=== PATIENT | female | born 1955 | race Caucasian/White ===

== ENCOUNTER 2018-09-09 19:14 | Emergency (ER) | payer BC, SELFPAY ==
[2018-09-09 19:15] VITALS: BP 151/87; PULSE 85; RESP 18; TEMP 36.7; O2SAT 99
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
--- NOTE | 2018-09-09 22:18 | ED.DEP ---
ED Disposition - Plan for ED Patient: Instructions: ED Concussion Referrals: Raul Brady DO [Primary Care Provider] -
[2018-09-09 22:22] VITALS: BP 146/85; PULSE 80; RESP 15; O2SAT 99
== END 2018-09-09 22:23 | disposition home or self-care (01) ==
LOC: ED 19:48
PROVIDERS: Emergency Provider Emergency Medicine; Family Provider Student in an Organized Health Care Education/Training Program; PCP Student in an Organized Health Care Education/Training Program
DX: S06.0X0A Concussion without loss of consciousness, initial encounter (principal); W22.8XXA Striking against or struck by other objects, initial encounter; Y93.9 Activity, unspecified; Y92.9 Unspecified place or not applicable; Y99.9 Unspecified external cause status; Z79.82 Long term (current) use of aspirin; Z79.899 Other long term (current) drug therapy; Z87.891 Personal history of nicotine dependence
CPT/HCPCS: 70450; 99282

== ENCOUNTER 2019-06-11 16:06 | Observation (INO) | payer BC, SELFPAY ==
[2019-06-11] VITALS (9 sets, daily range): BP systolic 126–156; BP diastolic 71–86; PULSE 61–83; RESP 16–20; TEMP 36.7–36.9; O2SAT 97–99; BMI 20.7; BMI 20.8
--- NOTE | 2019-06-11 16:40 | CT_ITS ---
STUDY: CTA HEAD AND NECK WITH CONTRAST REASON FOR EXAM: Female, 64 years old. NUMBNESS,TINGLING TO LEFT ARM/FACE RADIATION DOSAGE (If Supplied By Facility): CTDIvol = ( 5.27 ) mGy, DLP = ( 208.95 ) mGycm TECHNIQUE: CT angiography was performed with a multi-detector CT scanner. Data acquisition was obtained from the skull base through the vertex following intravenous administration of 100 CC ISOVUE 370. MIP images were reconstructed from the axial data set. Post-processing of the angiographic images was performed, with multiplanar reformation and 3D reconstruction. Individualized dose optimization techniques were used for this CT. COMPARISON: No relevant priors. FINDINGS: Normal bilateral petrous carotid arteries. Normal right cavernous carotid artery with a normal supraclinoid bifurcation. Normal left cavernous carotid artery with a normal supraclinoid bifurcation. Normal right A1 segments of the anterior cerebral artery. Normal left A1 segments of the anterior cerebral artery. Normal intact anterior communicating artery (ACOM). Normal bilateral A2 segments of the anterior cerebral arteries. Normal right M1 and M2 segments of the middle cerebral arteries, with a normal M1 bifurcation. Normal left M1 segments of the middle cerebral artery, with a normal M1 bifurcation. Poor visualization of the M2 and distal branches of the left middle cerebral artery which may represent the left middle cerebral artery infarct. No abrupt occlusion. Normal right posterior communicating artery (PCOM). Normal left posterior communicating artery (PCOM). Normal bilateral vertebral arteries. Normal basilar artery with a normal basilar bifurcation. The visualized bilateral superior cerebellar (SCA) arteries are normal. Normal bilateral P1, P2 and visualized P3 segments of the posterior cerebral arteries. There is no demonstrated aneurysm of the ambler of [place]. There is no demonstrated abnormality of the visualized brain. AORTIC ARCH: Normal visualized aortic arch. Normal origins of the brachiocephalic, left common carotid, and left subclavian arteries. RIGHT CAROTID ARTERIES: Normal right common carotid artery (CCA). Normal right common carotid bulb. Normal origin of the right internal carotid (ICA) artery without a hemodynamically significant stenosis. Normal visualized cervical portion of the right internal carotid artery. Normal origin of the right external carotid artery (ECA). LEFT CAROTID ARTERIES: Normal left common carotid artery (CCA). Normal left common carotid bulb. Normal origin of the left internal carotid (ICA) artery without a hemodynamically significant stenosis. Normal visualized cervical portion of the left internal carotid artery. Normal origin of the left external carotid artery (ECA). VERTEBRAL ARTERIES: Hypoplastic right vertebral artery which does anastomose with the left vertebral artery to form the basilar artery. CT/CTA Head AND Neck W/ Contrast IMPRESSION: 1. Suspect left middle cerebral artery infarct with vasospasm. No abrupt occlusion. Correlation MRI would be useful. 2. No carotid stenosis. 3. Hypoplastic right vertebral artery and patent dominant left vertebral artery. Electronically Signed: Harish Mackey MD at 17:48 EST Tel , Service support ,
--- NOTE | 2019-06-11 16:40 | CT_ITS ---
We are attempting to reach an attending provider to discuss findings. An addendum with communication details will be sent when the communication is complete. STUDY: CT BRAIN WITHOUT CONTRAST REASON FOR EXAM: Female, 64 years old. NUMBNESS,TINGLING LEFT ARM/FACE RADIATION DOSAGE (If Supplied By Facility): CTDIvol = ( 44.99 ) mGy, DLP = ( 745.49 ) mGycm TECHNIQUE: Transaxial CT imaging of the brain was performed without administration of intravenous contrast material. Individualized dose optimization techniques were used for this CT. COMPARISON: 09/09/2018 FINDINGS: Normal soft tissue structures. Normal calvarium. Normal size ventricles and extra-axial spaces for the patient''s age. Normal white matter tracts of the cerebral hemispheres. Normal basal ganglia and thalami. Normal brainstem. Normal cerebellum. There is no intracranial hemorrhage. There are no findings of an acute ischemic infarction. Normal visualized paranasal sinuses. CT/Brain/Head without Contrast IMPRESSION: Normal unenhanced CT scan of the brain. Electronically Signed: Harish Mackey MD at 17:02 EST Tel , Service support ,
--- NOTE | 2019-06-11 16:40 | EKG12_ITS ---
Test Reason : Blood Pressure : / mmHG Vent. Rate : 076 BPM Atrial Rate : 076 BPM P-R Int : 172 ms QRS Dur : 090 ms QT Int : 408 ms P-R-T Axes : 080 085 064 degrees QTc Int : 459 ms Normal sinus rhythm Right atrial enlargement Nonspecific ST abnormality Abnormal ECG Confirmed by DOMINIQUE ROMO, JOSUÉ ([id number]), food editor UMER ARCEO ([id number]) on 06/15/2019 3:45:01 PM Referred By: ERICH Confirmed By:JOSUÉ FOX MD
--- NOTE | 2019-06-11 16:41 | CT_ITS ---
STUDY: CTA CHEST REASON FOR EXAM: Female, 64 years old. NUMBNESS,TINGLING TO LEFT ARM/FACE RADIATION DOSAGE (If Supplied By Facility): CTDIvol = ( 12.15 ) mGy, DLP = ( 422.84 ) mGycm TECHNIQUE: The examination was performed with the intravenous administration of IV 100mL Isovue-370. Post-processing of the angiographic images was performed, with multiplanar reformation and 3D reconstruction. Individualized dose optimization techniques were used for this CT. COMPARISON: None. FINDINGS: Normal enhancement of the main pulmonary artery and right and left pulmonary arteries. Normal enhancement of the bilateral peripheral pulmonary arteries. There is no demonstrated pulmonary embolism. Normal thoracic aorta and visualized great vessels. There is no demonstrated aortic dissection. Normal heart and pericardium. Normal mediastinum. Normal hilar regions. Normal visualized trachea and bronchi. The lungs are well expanded. Normal pulmonary parenchyma. Normal pleura. Normal chest wall structures. Normal osseous structures. Normal visualized upper abdomen. CT/CTA Chest W/WO Contrast IMPRESSION: Normal CTA chest examination, without a demonstrated pulmonary embolism or arterial dissection. Electronically Signed: Harish Mackey MD at 17:38 EST Tel , Service support ,
--- NOTE | 2019-06-11 16:44 | NURSING ---
1513 STROKE ALERT CALLED
--- NOTE | 2019-06-11 16:49 | ED.DCSUM_ITS ---
History of Present Illness Chief Complaint: Numb/Ting Informant: Patient Onset: Today - 1100 time of onset Context: Sudden Onset - while walking in a store Quality and Location: Left Face Parasthesia, Left Arm Parasthesia Onset: sudden Current Severity: Mild Maximum Severity: Mild Worsened by: nothing Relieved by: nothing Associated Symptoms: Headache - see below. Negative for: Nausea, Vomiting, Chest Pain Narrative: Patient states her left lower extremity was hurting her last night, that is not bothering her today. While she was walking in a store today, she states that her left face started feeling funny in her jaw, as well as her left upper extremity. She states it was kind of tingling and kind of like my muscles were fatigued but she had no reason for that to be the case necessarily. She states she did some lifting and exercise yesterday, but did not feel like she overexerted herself in any way. She denies any palpitations, sweats, lightheadedness, chest or back pain, or dyspnea. She has no history of heart disease that she knows of. She denies any weakness anywhere. No recent injuries or travel out of the area. She felt some chills earlier and feels tired now like she is coming down with something but denies any fevers or symptoms of an illness except for a runny nose recently. No coughing. States she has a history of connective tissue disease and has reynauds phenomenon along with that, and her reynauds was affecting her hands today, but she denies any neurologic symptoms on the right side, with the exception of the tingling on the left side of her face that progressed around to the right perioral area as well. She also states that for longer period of time today, she had a specific area on her left protestant that was sore, not like an internal headache. She denies any visual changes at all during the course of any or all of the symptoms. Her leg is not bothering her today. No history of TIA or stroke. She does not take aspirin or any anticoagulants. Time of onset was around 11 AM today, which was 5-6 hours ago. - Past Medical History (1) Connective tissue disease, undifferentiated Status: Chronic Past Medical History - Allergies and Home Meds Allergies/Adverse Reactions: Allergies codeine Allergy (Verified 06/11/19 16:10) Rash epinephrine Allergy (Verified 06/11/19 16:10) Nausea/Vom/Diarrhea promethazine HCl [From Phenergan] Allergy (Verified 06/11/19 16:10) Rash Primary Care Physician: Raul Brady DO [Primary Care Provider] - Smoking Status: Former smoker Drugs: None Review of Systems General: Reports: Chills, Malaise. Denies: Fever, Sweats Eyes: Denies: Visual changes - bilaterally, Diplopia ENT: Reports: Rhinorrhea. Denies: Bilateral ear pain, Sore throat Cardiovascular: Denies: Chest pain, Palpitations Respiratory: Denies: Dyspnea, Cough, Dyspnea on exertion Gastrointestinal: Denies: Abdominal pain, Nausea, Vomiting, Diarrhea, Melena, Hematochezia Genitourinary: Denies: Dysuria, Hematuria, Frequency Musculoskeletal: Reports: Extremity Pain - see HPI; fatigued/discomfort. Denies: Neck pain, Back pain, Swelling Skin: Denies: Rash, Wounds Neurological: Reports: Parasthesia. Denies: Headache, Weakness STROKE Vital Signs/Narrative: Vital Signs Temp Pulse Resp BP Pulse Ox 06/11/19 16:07 98.0 F 71 16 149/76 H 98 Inital Vital Signs reviewed: Yes - NIHSS Initial 1a Level of Consciousness: 0 1b LOC Questions (Score 2 if aphasic/stupor): 0 1c LOC Commands (Only score 1st attempt): 0 2 Best Gaze (If aphasic, use reflexive mvmts.): 0 3 Visual: 0 4 Facial Palsy: 0 5 Motor Arm Right (UN = amputation/fusion): 0 5 Motor Arm Left: 0 6 Motor Leg Right: 0 6 Motor Leg Left: 0 7 Limb ataxia (Only + if out of proportion): 0 8 Sensory (Aphasia/stupor=0 or 1, coma=2): 1 9 Best Language: 0 10 Dysarthria (mute, coma=2, intubated=UN): 0 11 Extinction and Inattention (only scored if +): 0 Total Score: 1 General: Well nourished, Well developed, - - NAD Head: Normocephalic, Atraumatic Eyes: Perrl, EOMI ENT: Moist mucous membranes, No rhinorrhea, TM's clear, - - Mildly tender at one particular spot on her left protestant, but there is no palpable cord, erythema, lesion, or other objective abnormality. It is technically a little above her protestant and where the temporal artery would be expected to lie.. Negative for: Sinus tenderness Neck: Supple, Nontender, No lymphadenopathy Cardiovascular: Regular rate, Regular rhythm, No murmurs Respiratory: No distress, CTA bilaterally, Chest nontender Abdomen: Soft, Nontender, Nondistended, Normal bowel sounds Back: Nontender, Normal Inspection Extremities: Nontender, No edema. Negative for: Calf Tenderness Skin: Normal color, No rash, No Trauma Neurological: Alert, Oriented x3, Cranial nerves II-XII grossly intact, Normal Strength, Normal DTR, Normal Gait Psychological: Normal affect, Normal Mood Diagnostic/Tx/Re-eval Impressions Brain CT 06/11/19 16:40 IMPRESSION: Normal unenhanced CT scan of the brain. Electronically Signed: Harish Mackey MD at 17:02 EST Tel , Service support , ADDENDUM: 06/11/19 1710 IMPRESSION: Normal unenhanced CT scan of the brain. N.B. : The above information has been verbally conveyed by Harish Mackey MD to Thiago Dong MD, on 06/11/2019 17:03:48 (ET). Electronically Signed: Harish Mackey MD at 17:02 EST Tel , Service support , Head/Neck CTA 06/11/19 16:40 IMPRESSION: 1. Suspect left middle cerebral artery infarct with vasospasm. No abrupt occlusion. Correlation MRI would be useful. 2. No carotid stenosis. 3. Hypoplastic right vertebral artery and patent dominant left vertebral artery. Electronically Signed: Harish Mackey MD at 17:48 EST Tel , Service support , Chest CTA 06/11/19 16:41 IMPRESSION: Normal CTA chest examination, without a demonstrated pulmonary embolism or arterial dissection. Electronically Signed: Harish Mackey MD at 17:38 EST Tel , Service support , 06/11/19 16:40 Brain/Head without Contrast [CT] Stat CTA Head AND Neck W/ Contrast [CT] Stat 06/11/19 16:41 CTA Chest W/WO Contrast [CT] Stat Laboratory Results 06/11/19 06/11/19 06/11/19 16:46 17:01 17:01 WBC 7.5 RBC 4.80 Hgb 13.4 Hct 41.2 MCV 85.8 MCH 27.9 MCHC 32.5 RDW Std Deviation 39.9 RDW Coeff of Amandeep 12.8 Plt Count 344 MPV 9.9 Immature Gran % (Auto) 0.300 Neut % (Auto) 70.7 H Lymph % (Auto) 22.2 Barbour % (Auto) 6.0 Eos % (Auto) 0.1 Baso % (Auto) 0.7 Absolute Neuts (auto) 5.3 Absolute Lymphs (auto) 1.66 Nucleated RBC % 0 PT 14.0 INR 1.1 APTT 27.9 Sodium Potassium Chloride Carbon Dioxide Anion Gap BUN Creatinine Estim Creat Clear Calc Est GFR (MDRD) Af Amer Est GFR (MDRD) Non-Af BUN/Creatinine Ratio Glucose Calcium Troponin I POC Glucose 103 06/11/19 17:01 WBC RBC Hgb Hct MCV MCH MCHC RDW Std Deviation RDW Coeff of Amandeep Plt Count MPV Immature Gran % (Auto) Neut % (Auto) Lymph % (Auto) Barbour % (Auto) Eos % (Auto) Baso % (Auto) Absolute Neuts (auto) Absolute Lymphs (auto) Nucleated RBC % PT INR APTT Sodium 139 Potassium 3.6 Chloride 108 H Carbon Dioxide 25.0 Anion Gap 6 BUN 13 Creatinine 0.81 Estim Creat Clear Calc 61.39 Est GFR (MDRD) Af Amer 92 Est GFR (MDRD) Non-Af 76 BUN/Creatinine Ratio 16.1 Glucose 109 H Calcium 8.5 Troponin I < 0.015 POC Glucose - Rhythm Strip Rhythm Strip: Sinus Rhythm Rate: 76 Ectopy: None - EKG Initial EKG Interpretation: Sinus Rhythm, No Acute Injury Pattern, S-T Depression - less than 1mm sept-laterally, no ST elevation, Non-Specific ST Changes - sept- laterally Prior: No Prior - not avail to see - Medical Decision Making Stroke Team Activated: Yes - outside if IV tPA window, but less than 24 hrs Was Patient considered for Endovascular Intervention?: No - no LVO on CTA IV Alteplase (t-PA) Administered: No - outside of time window Stroke alert was called because patient was within 24-hour window but was not an IV TPA candidate given that she was out of 4.5-hour window. Discussed with Dr. Diaz with [facility] tele-neurology/tele-stroke, he agrees with this and advises that the patient be admitted even before CT angiography results were known. I suspect this is incidental given that it is showing an abnormal middle cerebral artery on the wrong side of the brain compared with the patient's symptoms, will admit for further work-up including MRI. EKG shows some nonspecific abnormalities, unstable angina is in the differential diagnosis but not confirmed given the subtle nonspecific abnormalities and negative troponin. She will be ordered aspirin to be performed after swallow/dysphagia evaluation is done, and will be admitted to PCU. ED Disposition - Plan for ED Patient: Disposition: [facility] Diagnosis: Facial paresthesia, Pain of left upper extremity, Acute electrocardiogram changes Referrals: Raul Brady DO [Primary Care Provider] -
[2019-06-11 17:01] LABS: Bedside Glucose 103 mg/dL (70-110)
[2019-06-11] MEDS: 0.9% Normal Saline 1,000 ML 999 ML IV (17:13)
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
[2019-06-11 17:24] LABS: Absolute Lymphocyte Count 1.66 X10^3/uL (0.83-4.51); Absolute Neutrophil Count 5.3 X10^3/uL (2.0-7.7); Basophil# 0.05 X10^3/uL; Basophil% 0.7 % (0-1); Eosinophil# 0.01 X10^3/uL; Eosinophils% 0.1 % (0-5); Hematocrit 41.2 % (37-47); Hemoglobin 13.4 g/dL (12.0-15.0); Lymphocyte # 1.66 X10^3/ul (4.0); Lymphocyte % 22.2 % (19-41); Mean Corp Hgb Conc 32.5 g/dL (32-36); Mean Corpuscular Hgb 27.9 pg (27.0-32.0); Mean Corpuscular Volume 85.8 fL (81-99); Mean Platelet Vol. 9.9 fl (6.2-12.0); Monocyte# 0.45 X10^3/uL; NRBC Flagged by Analyzer 0 % (0-5); Neutrophil # 5.29 X10^3/uL (2.7-7.7); Neutrophil % 70.7 % (47-70); Platelet Count 344 K/mm3 (150-450); RBC Distribution Width CV 12.8 % (11.6-14.6); RBC Distribution Width SD 39.9 fl (35.1-43.9); White Blood Count 7.5 K/mm3 (4.4-11.0)
[2019-06-11 17:44] LABS: Anion Gap 6 (5-15); BUN 13 mg/dL (7-18); BUN/Creat Ratio 16.1 RATIO (10-20); Calcium,Total 8.5 mg/dL (8.5-10.1); Chloride 108 mmol/L (98-107); Creatinine, Serum 0.81 mg/dL (0.55-1.02); EST Glomerular Filtration Rate 76 mL/min (>60); Est Glom Filt Rate - Afr Amer 92 mL/min (>60); Estimated Creatinine Clearance 61.39 ml/min; Glucose 109 mg/dL (74-106); Potassium 3.6 mmol/L (3.5-5.1); Sodium Level 139 mmol/L (136-145)
[2019-06-11 17:57] LABS: International Normalized Ratio 1.1
[2019-06-11 17:59] LABS: Partial Thromboplast Time 27.9 Seconds (24.1-36.2)
--- NOTE | 2019-06-11 18:48 | HP.PCM_ITS ---
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 She first had symptoms yesterday. She started with a headache over the left synagogue. She states that she though it was due to clenching her jaw. There was numbness and tingling that started with it, and it radiated down the face, with pain and parasthesias going into the traci and into the right cheek. She had no vision changes, no hearing changes, no speech changes, no focal weakness. She felt some pain in her left leg and arm, but associated this with a long walk that she went on. She woke up without the symptoms, however they started again today. She called her PCP and was instructed to come to the ER. CTA head shows stroke. EKG with nonspecific abnormalities that do not appear to be significantly different to prior EKG. [] Past Medical History Past Medical History (Chronic Problems): Chronic Problems Connective tissue disease, undifferentiated (Chronic) MCTD (mixed connective tissue disease) (Chronic) Patent foramen ovale (Chronic) Hypothyroid (Chronic) Migraine (Chronic) BPPV (benign paroxysmal positional vertigo) (Chronic) Allergies codeine Allergy (Verified 06/11/19 16:10) Rash epinephrine Allergy (Verified 06/11/19 16:10) Nausea/Vom/Diarrhea promethazine HCl [From Phenergan] Allergy (Verified 06/11/19 16:10) Rash Home Medications: Ambulatory Orders Medication Instructions Recorded Aspirin [Aspirin, Baby] 81 mg PO DAILY@0800 02/12/13 Estradiol [Vagifem] 10 mcg VG MOWEFR 02/12/13 Thyroid [[place] Thyroid] 60 mg PO DAILY 02/12/13 CycloSPORINE Ophthalmic [Restasis 1 drop OPHTHALMIC BID 08/26/14 Ophthalmic] Calcium Phosphate Trib/Vit D3 2 ea PO DAILY 06/11/19 [Caltrate Gummy Bites] Cholecalciferol (Vitamin D3) 2,000 unit PO QODAY 06/11/19 [Vitamin D3] Multivitamin [Flintstones] 1 ea PO DAILY 06/11/19 Surgical History: tonsillectomy, - - breast augmentation and later removal. Psychiatric History: No pertinent psych hx GEOLOGIST PETROLEUM History: No pertinent GEOLOGIST PETROLEUM history Lives: With Family Smoking Status: Never smoker Tobacco Use: Non-smoker Alcohol: None Drugs: None - *Family History Maternal History Items: Hypertension Paternal History Items: Hypertension Review of Systems Constitutional: Denies: Chills, Fever, Weight Change HEENT: Denies: Head Aches, Sinus Congestion, Sinus Drainage Cardiovascular: Denies: Chest Pain, Palpitations Respiratory: Denies: Cough, Shortness of breath at rest, Sputum production Gastrointestinal: Denies: Abdominal Pain, Nausea, Vomiting Genitourinary: Denies: Dysuria Musculoskeletal: Denies: Joint Pain, Joint Tenderness Skin: Denies: Rash, Wounds Neurological: Reports: Headaches, Numbness, Tingling. Denies: Balance problems, Blurred vision, Double vision, Change in Speech, Slurred speech, Confusion, Difficulty swallowing, Focal weakness, Incoordination, Seizures Psychiatric: Denies: Anxiety, Depression, Homicidal Ideations, Suicidal Ideations Hematologic/ Lymphatic: Denies: Easy Bruising, Easy Bleeding VTE Information - Inpt Only VTE Present on Admission: No VTE Mechan Device Prophylaxis: None VTE Pharm Prophylaxis ordered?: Yes Patient Problems: Active and Suspected Problems Facial paresthesia (Acute) Pain of left upper extremity (Acute) Acute electrocardiogram changes (Acute) - Physical Exam Vitals/I&O's: Vital Signs Temp Pulse Resp BP Pulse Ox 98.0 F 79 17 131/81 H 98 06/11/19 16:07 06/11/19 18:00 06/11/19 18:00 06/11/19 18:00 06/11/19 18:00 Oxygen Delivery Method Room Air Weight: 120 lb 9.486 oz Body Mass Index (BMI) 20.7 Finger Stick Blood Glucose 103 General: Alert, Oriented x3, Cooperative HEENT: Atraumatic, PERRLA, EOMI, Normocephalic Neck: Supple, No JVD, Negative Carotid Bruits Lungs: Clear to auscultation, Normal air movement Cardiovascular: Regular rate, No murmurs Abdomen: Bowel Sounds Present, Soft, Non Tender Extremities: No edema, Capillary Refill Less than 3 Seconds Skin: No rashes, No breakdown Musculoskeletal: No Tenderness to Palpation of Joints or Extremities Neurological: Cranial nerves II-XII grossly intact Psych/Mental Status: Normal Affect, Appropriate, Alert and oriented to time, place, person, mood and affect Laboratory Results 06/11/19 16:46: POC Glucose 103 06/11/19 17:01: WBC 7.5, RBC 4.80, Hgb 13.4, Hct 41.2, MCV 85.8, MCH 27.9, MCHC 32.5, RDW Std Deviation 39.9, RDW Coeff of Amandeep 12.8, Plt Count 344, MPV 9.9, Immature Gran % (Auto) 0.300, Neut % (Auto) 70.7 H, Lymph % (Auto) 22.2, Gregg % (Auto) 6.0, Eos % (Auto) 0.1, Baso % (Auto) 0.7, Absolute Neuts (auto) 5.3, Absolute Lymphs (auto) 1.66, Nucleated RBC % 0 06/11/19 17:01: PT 14.0, INR 1.1, APTT 27.9 06/11/19 17:01: Sodium 139, Potassium 3.6, Chloride 108 H, Carbon Dioxide 25.0, Anion Gap 6, BUN 13, Creatinine 0.81, Estim Creat Clear Calc 61.39, Est GFR (MDRD) Af Amer 92, Est GFR (MDRD) Non-Af 76, BUN/Creatinine Ratio 16.1, Glucose 109 H, Calcium 8.5, Troponin I < 0.015 Assessment/Plan All Active Problems Facial paresthesia (Acute) Pain of left upper extremity (Acute) Acute electrocardiogram changes (Acute) Head ache (Acute) 1. Left facial parasthesias -work-up in the ED included brain CT which was read as normal, CTA of the head and neck which was read as suspected left middle cerebral artery infarct with vasospasm. A CT a of the chest was performed which showed no PE or dissection. An EKG showed nonspecific ST changes, however these do not appear significantly different from old EKG. Blood work was unremarkable. Her neuro exam is normal. [facility] telemetry stroke was contacted and did not recommend TPA. She will be admitted for stroke work-up. An MRI of the brain will be obtained. We will try to obtain her recent echo from approximately 3 months ago at the [facility] [place]. She has a known patent foramen ovale, states this is very small. Obtain PTOTST evals. Check FLP. Check TSH and B12. 2. History of migraine-potentially contributing to above. Consider neuro consult depending on results of MRI. 3. History of BPPV-currently no dizziness. This was treated with outpatient vestibular therapy. 4. History of PFO-need to obtain echo results as noted above, may need repeat echo. 5. History of mixed connective tissue disorder-she has known vascular manifestations and pulmonary interstitial disease from this. DVT prophylaxis: Lovenox This patient was seen by Walter Kwan PA-C under the supervision of Doctor Cleve. <Socrates Poon F - Last Filed: 06/11/19 19:07> History of Present Illness The patient is a 64 year old F [] Past Medical History Allergies codeine Allergy (Verified 06/11/19 16:10) Rash epinephrine Allergy (Verified 06/11/19 16:10) Nausea/Vom/Diarrhea promethazine HCl [From Phenergan] Allergy (Verified 06/11/19 16:10) Rash - Physical Exam Vitals/I&O's: Vital Signs Temp Pulse Resp BP Pulse Ox 98.4 F 83 20 H 126/83 H 97 06/11/19 18:48 06/11/19 18:48 06/11/19 18:48 06/11/19 18:48 06/11/19 18:48 Oxygen Delivery Method Room Air Weight: 120 lb 9.486 oz Body Mass Index (BMI) 20.7 Finger Stick Blood Glucose 103 Intake and Output for Last 24 Hours 06/09/19 06/10/19 06/11/19 23:59 23:59 23:59 Intake Total 1000 / 1000 Balance 1000 / 1000 Laboratory Results 06/11/19 16:46: POC Glucose 103 06/11/19 17:01: WBC 7.5, RBC 4.80, Hgb 13.4, Hct 41.2, MCV 85.8, MCH 27.9, MCHC 32.5, RDW Std Deviation 39.9, RDW Coeff of Amandeep 12.8, Plt Count 344, MPV 9.9, Immature Gran % (Auto) 0.300, Neut % (Auto) 70.7 H, Lymph % (Auto) 22.2, Gregg % (Auto) 6.0, Eos % (Auto) 0.1, Baso % (Auto) 0.7, Absolute Neuts (auto) 5.3, Absolute Lymphs (auto) 1.66, Nucleated RBC % 0 06/11/19 17:01: PT 14.0, INR 1.1, APTT 27.9 06/11/19 17:01: Sodium 139, Potassium 3.6, Chloride 108 H, Carbon Dioxide 25.0, Anion Gap 6, BUN 13, Creatinine 0.81, Estim Creat Clear Calc 61.39, Est GFR (MDRD) Af Amer 92, Est GFR (MDRD) Non-Af 76, BUN/Creatinine Ratio 16.1, Glucose 109 H, Calcium 8.5, Troponin I < 0.015 Current Medications Sodium Chloride () 10 - 40 ml IV UD PRN PRN Reason: SALINE FLUSH Addendum: Dr. Poon I personally examined the patient and reviewed the chart. I agree with the above. 64-year-old female with a history of mixed infective tissue disease presents with paresthesias of her left face and left upper extremity. She states that this is been going on since about 11 this morning, yesterday she had some left leg pain which is not abnormal since she had walked about 2 miles. CTA of her chest was unremarkable CTA of her head and neck demonstrated a possible left middle cerebral artery infarction since there was poor visualiza tion of the artery. We will bring her in for a stroke work-up with an echo and an MRI in the morning. Currently she says that everything seems to be getting better. She is already on aspirin therefore we will add a Plavix and start her on Lipitor. OBSV E&M: 65437 Initial observation care L2
--- NOTE | 2019-06-11 19:17 | ECHOD_ITS ---
Reason For Study: TIA/CVA Procedure This was a 2D Doppler, Color Flow transthoracic echocardiogram. Exam performed portable in patient room. Left Ventricle Normal LV size. Left ventricular systolic function is normal. The estimated ejection fraction is 55 %. Stage 2 diastolic dysfunction. No regional wall motion abnormalities noted. Right Ventricle Normal RV size. Normal systolic function. Atria Normal left atrium. Normal right atrium. Mitral Valve Normal mitral valve. Tricuspid Valve Normal tricuspid valve. Mild (1+) tricuspid valve insufficiency. Pulmonary artery systolic pressure is 28 mmHg. Aortic Valve Normal aortic valve. Trisinus/trileaflet aortic valve. Pulmonic Valve Normal pulmonic valve. Great Vessels Normal aortic root. The pulmonary artery is normal size. Normal inferior vena cava. Pericardium/Pleural No pericardial effusion. MMode/2D Measurements & Calculations LVIDd: 3.8 cm IVSd: 0.71 cm Ao root diam: 2.5 cm LVIDs: 2.3 cm LVPWd: 0.79 cm RVDd: 3.6 cm FS: 39.9 % LAV(MOD-bp): 37.9 ml LVAd ap4: 24.0 cm2 SV(MOD-sp4): 41.0 ml LAV(MOD-bp) Indexed: 24.0 ml/m2 EDV(MOD-sp4): 61.2 ml LAV(MOD-sp2): 43.8 ml EDV(sp4-el): 63.7 ml LAV(MOD-sp4): 28.3 ml LVAs ap4: 12.2 cm2 ESV(MOD-sp4): 20.2 ml ESV(sp4-el): 20.0 ml EF(MOD-sp4): 67.0 % EF(sp4-el): 68.5 % SV(sp4-el): 43.6 ml LA A4 area: 12.2 cm2 LA dimension(2D): 3.1 cm RA A4 area: 12.1 cm2 Doppler Measurements & Calculations MV E max mateo: 104.6 cm/sec Lat Peak E' Mateo: 10.5 cm/sec Med Peak E' Mateo: 7.9 cm/sec MV A max mateo: 62.7 cm/sec E/E' lat: 10.0 E/E' med: 13.3 MV E/A: 1.7 Ao V2 max: 129.4 cm/sec LV V1 max: 125.3 cm/sec PA V2 max: 91.5 cm/sec Ao max P.7 mmHg LV V1 max P.3 mmHg Ao V2 mean: 87.0 cm/sec Ao mean P.4 mmHg Ao V2 VTI: 28.7 cm TR max mateo: 240.2 cm/sec TR max P.1 mmHg Interpretation Summary Normal LV size. Left ventricular systolic function is normal. The estimated ejection fraction is 55 %. Stage 2 diastolic dysfunction. Mild (1+) tricuspid valve insufficiency. Ordering Physician: Socrates Poon Referring Physician: Raul Castro Performed By: Dionne Coreas, EMA, RVT
[2019-06-12] VITALS (9 sets, daily range): BP systolic 110–122; BP diastolic 60–70; PULSE 59–75; RESP 16–18; TEMP 36.6–37.1; O2SAT 97–99
[2019-06-12 06:06] LABS: Absolute Lymphocyte Count 1.46 X10^3/uL (0.83-4.51); Absolute Neutrophil Count 3.2 X10^3/uL (2.0-7.7); Basophil# 0.05 X10^3/uL; Eosinophil# 0.08 X10^3/uL; Eosinophils% 1.5 % (0-5); Hematocrit 41.5 % (37-47); Hemoglobin 13.1 g/dL (12.0-15.0); Lymphocyte # 1.46 X10^3/ul (4.0); Lymphocyte % 28.2 % (19-41); Mean Corp Hgb Conc 31.6 g/dL (32-36); Mean Corpuscular Volume 85.4 fL (81-99); Monocyte% 7.7 % (0-10); NRBC Flagged by Analyzer 0 % (0-5); Neutrophil # 3.18 X10^3/uL (2.7-7.7); Neutrophil % 61.4 % (47-70); Platelet Count 286 K/mm3 (150-450); RBC Distribution Width SD 39.9 fl (35.1-43.9); Red Blood Count 4.86 M/mm3 (4.2-5.4); White Blood Count 5.2 K/mm3 (4.4-11.0)
[2019-06-12 06:33] LABS: Anion Gap 2 (5-15); BUN 10 mg/dL (7-18); Calcium,Total 8.6 mg/dL (8.5-10.1); Chloride 115 mmol/L (98-107); Cholesterol 176 mg/dL (200); Creatinine, Serum 0.77 mg/dL (0.55-1.02); EST Glomerular Filtration Rate 80 mL/min (>60); Est Glom Filt Rate - Afr Amer 97 mL/min (>60); Estimated Creatinine Clearance 64.58 ml/min; Glucose 89 mg/dL (74-106); High Density Lipoprotein 83 mg/dL; Potassium 3.7 mmol/L (3.5-5.1); Sodium Level 144 mmol/L (136-145); Triglycerides 64 mg/dL; Very Low Density Lipoprotein 13 mg/dL (5-40)
--- NOTE | 2019-06-12 08:00 | MRI_ITS ---
STUDY: MRI BRAIN WITHOUT CONTRAST REASON FOR EXAM: Female, 64 years old. 2 day hx of weakness, N/T, resolved now TECHNIQUE: Standardized multiplanar fat and water weighted pulse sequences were obtained. COMPARISON: 09/14/2014 FINDINGS: Normal size of the ventricles and extra-axial spaces for the patient''s age. Normal white matter tracts of the supratentorial brain. There is no evidence for recent intracranial ischemia or other cause of cytotoxic edema on diffusion weighted imaging (DWI). Normal T2* images of the brain without demonstrated susceptibility artifact. There is no demonstrated hemosiderin stain. Normal bilateral basal ganglia. Normal thalami. There is no extra-axial fluid accumulation. Normal flow voids within the major intracranial circulation suggesting patency by spin echo criteria. Normal sella turcica, pituitary gland, infundibular stalk, optic chiasm and hypothalamus. Normal tectal plate and pineal gland. Normal midbrain, mane and medulla. Normal cerebellum. Normal basal cisterns. Normal bilateral temporal bones. Normal bilateral internal auditory canals. No demonstrated orbital abnormality, within the constraints of a routine brain study. Normal visualized paranasal sinuses. Normal calvarium and skull base. Normal visualized soft tissue structures. Normal visualized upper cervical spine. MRI/Brain without Contrast IMPRESSION: Normal unenhanced MRI of the brain. Electronically Signed: Harish Mackey MD at 9:55 EST Tel , Service support ,
[2019-06-12] MEDS: Aspirin 81 MG TAB.CHEW PO (08:18)
[2019-06-12] MEDS: Clopidogrel Bisulfate 75 MG Tablet PO (10:29)
--- NOTE | 2019-06-12 14:00 | PCM.DC ---
- Discharge Diagnoses Current Active Problems: Current Active and Chronic Problems Connective tissue disease, undifferentiated (Chronic) Facial paresthesia (Acute) Pain of left upper extremity (Acute) Acute electrocardiogram changes (Acute) MCTD (mixed connective tissue disease) (Chronic) Patent foramen ovale (Chronic) Hypothyroid (Chronic) Migraine (Chronic) BPPV (benign paroxysmal positional vertigo) (Chronic) You will use the following diet at home:: Regular Your food should be the consistency of: Regular Your liquids should be the consistency of: Regular/Thin Discharge Activity: Return to Normal Activity Call your doctor if you observe: Fever of 101 or Higher, Shortness of breath, Dizziness, Fainting spells, Swelling in the ankles, Chest pain, Increased palpitations (irregular heartbeat) Allergies/Adverse Reactions: Allergies codeine Allergy (Verified 06/11/19 16:10) Rash epinephrine Allergy (Verified 06/11/19 19:44) Nausea/Vom/Diarrhea/Heart Racing promethazine HCl [From Phenergan] Allergy (Verified 06/11/19 16:10) Rash Medications to take at Discharge Aspirin [Aspirin, Baby] 81 mg PO DAILY@0800 02/12/13 Estradiol [Vagifem] 10 mcg VG MOWEFR 02/12/13 Thyroid [[place] Thyroid] 60 mg PO DAILY 02/12/13 CycloSPORINE Ophthalmic [Restasis Ophthalmic] 1 drop OPHTHALMIC BID 08/26/14 Calcium Phosphate Trib/Vit D3 [Caltrate Gummy Bites] 2 ea PO DAILY 06/11/19 Cholecalciferol (Vitamin D3) [Vitamin D3] 2,000 unit PO QODAY 06/11/19 Multivitamin [Flintstones] 1 ea PO DAILY 06/11/19 Primary Care Physician: Raul Brady DO [Primary Care Provider] - Please follow up with your Primary Care Physician in: 3-5 days Test Results: Test results from this visit will be discussed in further detail at your follow-up appointment, if applicable.
--- NOTE | 2019-06-12 15:35 | DS.PCM_ITS ---
Discharge Date and Diagnosis Date of Admission: 06/11/19 Date of Discharge: 06/12/19 - Secondary Discharge Diagnosis Chronic Problems Connective tissue disease, undifferentiated (Chronic) MCTD (mixed connective tissue disease) (Chronic) Patent foramen ovale (Chronic) Hypothyroid (Chronic) Migraine (Chronic) BPPV (benign paroxysmal positional vertigo) (Chronic) Hospital Course and Treatment Imaging Results: CT Brain: IMPRESSION: Normal unenhanced CT scan of the brain. CTA Head/neck: IMPRESSION: 1. Suspect left middle cerebral artery infarct with vasospasm. No abrupt occlusion. Correlation MRI would be useful. 2. No carotid stenosis. 3. Hypoplastic right vertebral artery and patent dominant left vertebral artery. CTA Chest: IMPRESSION: Normal CTA chest examination, without a demonstrated pulmonary embolism or arterial dissection. MRI Brain: IMPRESSION: Normal unenhanced MRI of the brain. Echo: Interpretation Summary Normal LV size. Left ventricular systolic function is normal. The estimated ejection fraction is 55 %. Stage 2 diastolic dysfunction. Mild (1+) tricuspid valve insufficiency. 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 She first had symptoms yesterday. She started with a headache over the left zoroastrian. She states that she though it was due to clenching her jaw. There was numbness and tingling that started with it, and it radiated down the face, with pain and parasthesias going into the traci and into the right cheek. She had no vision changes, no hearing changes, no speech changes, no focal weakness. She felt some pain in her left leg and arm, but associated this with a long walk that she went on. She woke up without the symptoms, however they started again today. She called her PCP and was instructed to come to the ER. CTA head shows stroke. EKG with nonspecific abnormalities that do not appear to be significantly different to prior EKG. Hospital Course: 1. Left facial and left upper extremity [id number] female with a history of migraines who had some left-sided facial numbness that transitioned into right-sided tingling on her face as well as left upper extremity numbness. That has since resolved and the facial numbness and tingling is also much improved. She does have a history of a mixed connective tissue disease and she stated that all this started after she had left head pain right above her left orbit. She said it was tender to palpation almost like she had hit her head but she denies ever actually hitting her head. She did have a CT of the brain which was normal as well as an MRI of the brain which was normal CTA of the head and neck showed the possible infarct in the left M2 distribution since there is poor visualization of the M2 however the MRI was negative. Echo was also unremarkable it did show a stage II diastolic dysfunction but no evidence of the PFO she was told she had. She states that she does feel much better now and she is not sure exactly what caused any of this. There is the possibility that her mixed connective tissue disorder which she says has known vascular manifestations could be contributing and she may need to see a bioprocessing manufacturing technician for this as an outpatient. She does state that she used to have CT scans of her chest every year for pulmonary interstitial disease however the CTA that was obtained here of her chest, did not show any signs of interstitial disease. Initially on admission with a concern was for the possible stroke she was started on Plavix and a statin however with the MRI results being negative the Plavix was discontinued and her lipids are completely normal with an LDL of 80 and an HDL of 83 with a total cholesterol of 176. Therefore the statin was also discontinued. She will need to follow-up with her primary care physician as an outpatient in 3 to 5 days. Risks and benefits of discharge today were discussed with both her and family, and they expressed understanding to the risks and benefits of discharge. 2. Her other medical diagnoses were evaluated and her home medications were continued where appropriate - Physical Exam Vitals/I&O's: Vital Signs Temp Pulse Resp BP Pulse Ox 97.8 F 73 18 110/60 97 06/12/19 14:21 06/12/19 14:21 06/12/19 14:21 06/12/19 14:21 06/12/19 14:21 Oxygen Delivery Method Room Air Weight: 121 lb 4.068 oz Body Mass Index (BMI) 20.8 Finger Stick Blood Glucose 103 Intake and Output for Last 24 Hours 06/10/19 06/11/19 06/12/19 23:59 23:59 23:59 Intake Total 1480 / 1480 340 / 340 Balance 1480 / 1480 340 / 340 General: Alert, Oriented x3, Cooperative, No apparent distress HEENT: Atraumatic, PERRLA, EOMI, Normocephalic Oral: Moist Mucosa Neck: Supple, No JVD Lungs: Clear to auscultation, Normal air movement, No rhonchi, No wheeze, No rales Cardiovascular: Regular rate, Regular Rhythm, Normal S1, Normal S2, No murmurs Abdomen: Soft, Non Tender, Non-Distended, No Hepato-splenomegaly Extremities: No edema, Capillary Refill Less than 3 Seconds Skin: No rashes, No breakdown Neurological: Neuro grossly intact, Sensory exam intact to light touch and pain Psych/Mental Status: Normal Affect, Appropriate Laboratory Results 06/11/19 16:46: POC Glucose 103 06/11/19 17:01: WBC 7.5, RBC 4.80, Hgb 13.4, Hct 41.2, MCV 85.8, MCH 27.9, MCHC 32.5, RDW Std Deviation 39.9, RDW Coeff of Amandeep 12.8, Plt Count 344, MPV 9.9, Immature Gran % (Auto) 0.300, Neut % (Auto) 70.7 H, Lymph % (Auto) 22.2, Mclean % (Auto) 6.0, Eos % (Auto) 0.1, Baso % (Auto) 0.7, Absolute Neuts (auto) 5.3, Absolute Lymphs (auto) 1.66, Nucleated RBC % 0 06/11/19 17:01: PT 14.0, INR 1.1, APTT 27.9 06/11/19 17:01: Sodium 139, Potassium 3.6, Chloride 108 H, Carbon Dioxide 25.0, Anion Gap 6, BUN 13, Creatinine 0.81, Estim Creat Clear Calc 61.39, Est GFR (MDRD) Af Amer 92, Est GFR (MDRD) Non-Af 76, BUN/Creatinine Ratio 16.1, Glucose 109 H, Calcium 8.5, Troponin I < 0.015 06/11/19 19:55: Troponin I < 0.015 06/11/19 22:50: Troponin I < 0.015 06/12/19 05:14: WBC 5.2, RBC 4.86, Hgb 13.1, Hct 41.5, MCV 85.4, MCH 27.0, MCHC 31.6 L, RDW Std Deviation 39.9, RDW Coeff of Amandeep 13.0, Plt Count 286, MPV 10.0, Immature Gran % (Auto) 0.200, Neut % (Auto) 61.4, Lymph % (Auto) 28.2, Mclean % (Auto) 7.7, Eos % (Auto) 1.5, Baso % (Auto) 1.0, Absolute Neuts (auto) 3.2, Absolute Lymphs (auto) 1.46, Nucleated RBC % 0 06/12/19 05:14: Sodium 144, Potassium 3.7, Chloride 115 H, Carbon Dioxide 27.0, Anion Gap 2 L, BUN 10, Creatinine 0.77, Estim Creat Clear Calc 64.58, Est GFR (MDRD) Af Amer 97, Est GFR (MDRD) Non-Af 80, BUN/Creatinine Ratio 13.0, Glucose 89, Calcium 8.6, Triglycerides 64, Cholesterol 176, LDL Cholesterol 80, VLDL Cholesterol 13, HDL Cholesterol 83 Discharge Activity: Return to Normal Activity Call your doctor if you observe: Fever of 101 or Higher, Shortness of breath, Dizziness, Fainting spells, Swelling in the ankles, Chest pain, Increased palpitations (irregular heartbeat) Home Medications: Medications to take at Discharge Aspirin [Aspirin, Baby] 81 mg PO DAILY@0800 02/12/13 Estradiol [Vagifem] 10 mcg VG MOWEFR 02/12/13 Thyroid [[place] Thyroid] 60 mg PO DAILY 02/12/13 CycloSPORINE Ophthalmic [Restasis Ophthalmic] 1 drop OPHTHALMIC BID 08/26/14 Calcium Phosphate Trib/Vit D3 [Caltrate Gummy Bites] 2 ea PO DAILY 06/11/19 Cholecalciferol (Vitamin D3) [Vitamin D3] 2,000 unit PO QODAY 06/11/19 Multivitamin [Flintstones] 1 ea PO DAILY 06/11/19 Primary Care Physician: Raul Brady DO [Primary Care Provider] - Please follow up with your Primary Care Physician in: 3-5 days Disposition: Home Minutes spent on discharge:: 35 Patient Condition:: Stable Medical Necessity - Tobacco Use Smoking Status: Former smoker Tobacco Use: Cigarettes Meaningful Use Info Meaningful Use Diagnoses (Choose all that apply): None applicable OBSV E&M: 32125 Observation care discharge
== END 2019-06-12 14:39 | disposition home or self-care (01) ==
LOC: ED 18:07 → PCU 19:29
PROVIDERS: Admitting Provider Family Medicine; Emergency Provider Emergency Medicine; PCP Student in an Organized Health Care Education/Training Program; Visit Provider Family Medicine
DX: R20.2 Paresthesia of skin (principal); R20.0 Anesthesia of skin; M35.1 Other overlap syndromes; R29.701 NIHSS score 1; Q21.1 Atrial septal defect; E03.9 Hypothyroidism, unspecified; Z79.899 Other long term (current) drug therapy; Z79.82 Long term (current) use of aspirin; Z87.891 Personal history of nicotine dependence
CPT/HCPCS: 36415; 70450; 70496; 70498; 70551; 71275; 80048; 80061; 82962; 84484; 85025; 85610; 85730; 92610; 93005; 93306; 94762; 96360; 96361; 97802; 99218; 99285; J7030; Q9967; A4216; G0378

== ENCOUNTER 2020-11-22 01:48 | Emergency (ER) | payer BC, SELFPAY ==
[2019-06-11 19:35] VITALS: BMI 20.8
[2020-11-22 01:48] VITALS: BP 143/76; PULSE 79; RESP 16; TEMP 37.3; O2SAT 95; BMI 21.9
--- NOTE | 2020-11-22 02:03 | EX.ED.DYSGE1 ---
HPI History of Present Illness Chief Complaint: General Illness Narrative Narrative: 65-year-old female presenting with sore throat. She states he has had rhinorrhea and sore throat for about a week. She was seen yesterday and was treated for sinusitis with a Z-Gordon. She took 1 dose. She is not taking a second dose. She states that her throat is more sore than yesterday. She states that during the course of the week she had a fever of 100.2. She has had no return of fever. She denies body aches, chills, cough, shortness of breath. Patient concerned she may have strep throat given that she was around her grandchild who goes to daycare. She states that her grandchild was treated for croup last week and was given an inhaler. [facility] Medical History Hypothyroidism Interstitial lung disease Mixed connective tissue disease Home Medications aspirin 81 mg PO DAILY@0800 02/12/13 [History Last Taken 06/11/19] estradiol [Vagifem] 10 mcg VG MOWEFR 02/12/13 [History Last Taken 06/10/19] thyroid (pork) [[place] Thyroid] 60 mg PO DAILY 02/12/13 [History Last Taken 06/11/19] cyclosporine [Restasis] 1 drp OPHTHALMIC (EYE) BID 08/26/14 [History Last Taken 06/11/19] calcium phosphate-vitamin D3 2 ea PO DAILY 06/11/19 [History Last Taken 06/11/19] cholecalciferol (vitamin D3) 2,000 unit PO QODAY 06/11/19 [History Last Taken 06/11/19] pediatric multivitamin 1 ea PO DAILY 06/11/19 [History Last Taken 06/11/19] Allergy/AdvReac Type Severity Reaction Status Date / Time codeine Allergy Rash Verified 11/22/20 01:51 epinephrine Allergy Nausea/Vom/Diarrhea/Heart Verified 11/22/20 01:51 Racing promethazine HCl Allergy Rash Verified 11/22/20 01:51 [From Phenergan] Social History Smoking Status: Former smoker ROS ROS ED Constitutional Constitutional ED: Reports fever(s); Denies chills or sweats Eyes Eyes: Denies blurry vision or diplopia ENT ENT ED: Reports rhinorrhea and sore throat; Denies ear pain Cardiovascular Cardiovascular: Denies chest pain or palpitations Respiratory/Chest Respiratory/Chest: Denies cough, dyspnea or sputum Gastrointestinal Gastrointestinal: Denies abdominal pain, nausea or vomiting Genitourinary Genitourinary ED: Denies dysuria or hematuria Musculoskeletal Musculoskeletal: Reports neck pain; Denies arthralgias, back pain or myalgias Integumentary Denies Abrasions or rash Neurologic Neurologic: Denies headache(s) or paresthesias EXAM Physical Exam Const Vital Signs: 11/22/20 01:48 11/22/20 01:52 Temperature 99.1 F Temperature Source Temporal Pulse Rate 79 Respiratory Rate 16 Respiratory Effort Normal Respiratory Pattern Normal Blood Pressure 143/76 H Blood Pressure Mean 98 Pulse Ox 95 Oxygen Delivery Method Room Air Positive well nourished General Appearance ED: NAD HEENT Reports TM's clear and moist mucous membranes HEENT Narrative: Slight erythema to the posterior oropharynx. There are no exudates noted. Airway is patent without stridor. Negative for trauma Tympanic Membrane ED: Yes TM's clear bilateral Eyes PERRL and EOMs intact bilaterally Neck no lymphadenopathy and supple Resp normal respiratory effort and clear to auscultation bilaterally Cardio regular rate and regular rhythm GI normal to inspection, nondistended, normoactive bowel sounds Neuro oriented x3, CN's II-XII intact bilaterally and no sensory deficits noted Sensorium / Orientation: alert Motor Exam: strength 5/5 throughout Psych mental status grossly normal Skin no rashes or lesions noted and no wounds MDM MDM MDM Narrative Medical decision making narrative: Patient presenting with a low-grade fever earlier this week as well as rhinorrhea and sore throat. Patient denies shortness of breath or cough. Patient states that she has had vaccination for COVID-19. She does not have body aches, chills, change of taste and smell. Patient states that she was recently around her grandchild who was treated for croup last week and given an albuterol inhaler. I will test for RSV and strep. Patient is offered Decadron but declines. Patient tested negative for RSV and strep. Again she declines Decadron. She states she just wants to continue her antibiotics at home. She is given return precautions. Patient stable discharge. Impression: 1. Viral pharyngitis Discharge Plan Triage Chief Complaint: General Illness ED Provider: Gasper Muhammad Dx/Rx/DC Orders Instructions: ED Pharyngitis, Viral Prescriptions: No Action thyroid (pork) [[place] Thyroid] 90 MG tablet 60 mg PO DAILY RF: 0 estradiol [Vagifem] 10 MCG tablet 10 mcg VG MOWEFR RF: 0 aspirin 81 MG Tab.Chew 81 mg PO DAILY@0800 RF: 0 cyclosporine [Restasis] 1 DROP Droperette 1 drp ophthalmic (eye) BID RF: 0 pediatric multivitamin 1 EACH tablet,chewable 1 ea PO DAILY RF: 0 cholecalciferol (vitamin D3) 2,000 UNIT capsule 2,000 unit PO QODAY RF: 0 calcium phosphate-vitamin D3 1 EACH tablet,chewable 2 ea PO DAILY RF: 0 Primary Care Provider: Raul Brady Referrals: Raul Brady DO [Primary Care Provider] - Disposition Disposition: Home, Self Care
== END 2020-11-22 03:14 | disposition home or self-care (01) ==
PROVIDERS: Emergency Provider Student in an Organized Health Care Education/Training Program; PCP Student in an Organized Health Care Education/Training Program
DX: J02.8 Acute pharyngitis due to other specified organisms (principal); J34.89 Other specified disorders of nose and nasal sinuses; E03.9 Hypothyroidism, unspecified; M35.1 Other overlap syndromes; Z79.82 Long term (current) use of aspirin; Z79.899 Other long term (current) drug therapy; Z87.891 Personal history of nicotine dependence
CPT/HCPCS: 87807; 87880; 99283

== ENCOUNTER 2021-06-22 06:19 | Day surgery (SDC) | payer MEDICARE, OTHER, SELFPAY ==
[2021-06-22] VITALS (7 sets, daily range): BP systolic 106–127; BP diastolic 70–83; PULSE 57–67; RESP 16–18; TEMP 36.6–36.8; O2SAT 99–100; BMI 21.4
--- NOTE | 2021-06-22 06:51 | HP.PCM_ITS ---
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 She has a family history of colon cancer and she has a personal history of polyps over 20 years ago. She does not have any abdominal pain. Is not having any cramping. She is not having any chest pain or shortness of breath. She denies having any weakness. All 16 review of systems are negative except those pertinent positive mentioned HPI. Past Medical History : Connective tissue disease, undifferentiated MCTD (mixed connective tissue disease) Patent foramen ovale Hypothyroid Migraine BPPV (benign paroxysmal positional vertigo) Allergies codeine Allergy Rash epinephrine Allergy Nausea/Vom/Diarrhea promethazine HCl [From Phenergan] Allergy Rash Surgical History: tonsillectomy, - - breast augmentation and later removal. 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 Lives: With Family Smoking Status: Never smoker Tobacco Use: Non-smoker Alcohol: None Drugs: None - *Family History Maternal History Items: Hypertension Paternal History Items: Hypertension Review of Systems Constitutional: Denies: Chills, Fever, Weight Change HEENT: Denies: Head Aches, Sinus Congestion, Sinus Drainage Cardiovascular: Denies: Chest Pain, Palpitations Respiratory: Denies: Cough, Shortness of breath at rest, Sputum production Gastrointestinal: Denies: Abdominal Pain, Nausea, Vomiting Genitourinary: Denies: Dysuria Musculoskeletal: Denies: Joint Pain, Joint Tenderness Skin: Denies: Rash, Wounds Psychiatric: Denies: Anxiety, Depression, Homicidal Ideations, Suicidal Ideations Hematologic/ Lymphatic: Denies: Easy Bruising, Easy Bleeding Physical examination General: Alert, Oriented x3, Cooperative HEENT: Atraumatic, PERRLA, EOMI, Normocephalic Neck: Supple, No JVD, Negative Carotid Bruits Lungs: Clear to auscultation, Normal air movement Cardiovascular: Regular rate, No murmurs Abdomen: Bowel Sounds Present, Soft, Non Tender Extremities: No edema, Capillary Refill Less than 3 Seconds Skin: No rashes, No breakdown Musculoskeletal: No Tenderness to Palpation of Joints or Extremities Neurological: Cranial nerves II-XII grossly intact Psych/Mental Status: Normal Affect, Appropriate, Alert and oriented to time, place, person, mood and affect Laboratory Results Assessment/Plan 66-year-old comes in for surveillance colonoscopy. She was explained alternatives, risk, benefits including not withstanding bleeding, infection, sepsis, perforation, need for emergent . She will have an ASA of 1.
[2021-06-22] MEDS: Lactated Ringers 1,000 ML 15 ML IV (07:11)
--- NOTE | 2021-06-22 08:30 | OP.COLON_ITS ---
Patient Name: Candace Arroyo Procedure Date: 06/22/2021 7:47 AM Date of : 1955 Age: 66 Procedure: Colonoscopy Indications: Screening in patient at increased risk: Family history of 1st-degree relative with colorectal cancer Providers: Yogi Gil DO Medicines: General Anesthesia Patient Profile: This is a 66 year old female. Refer to note in patient chart for documentation of history and physical. Last Colonoscopy: 5 years ago. Complications: No immediate complications. Procedure: Pre-Anesthesia Assessment: - Prior to the procedure, a History and Physical was performed, and patient medications and allergies were reviewed. The patient is competent. The risks and benefits of the procedure and the sedation options and risks were discussed with the patient. All questions were answered and informed consent was obtained. Patient identification and proposed procedure were verified by the physician in the pre-procedure area. Mental Status Examination: alert and oriented. Airway Examination: normal oropharyngeal airway and neck mobility. Respiratory Examination: clear to auscultation. CV Examination: normal. Prophylactic Antibiotics: The patient does not require prophylactic antibiotics. Prior Anticoagulants: The patient has taken no previous anticoagulant or antiplatelet agents. ASA Grade Assessment: II - A patient with mild systemic disease. After reviewing the risks and benefits, the patient was deemed in satisfactory condition to undergo the procedure. The anesthesia plan was to use moderate sedation / analgesia (conscious sedation). Immediately prior to administration of medications, the patient was re-assessed for adequacy to receive sedatives. The heart rate, respiratory rate, oxygen saturations, blood pressure, adequacy of pulmonary ventilation, and response to care were monitored throughout the procedure. The physical status of the patient was re-assessed after the procedure. After I obtained informed consent, the scope was passed under direct vision. Throughout the procedure, the patient's blood pressure, pulse, and oxygen saturations were monitored continuously. The Colonoscope was introduced through the anus and advanced to the cecum, identified by appendiceal orifice and ileocecal valve. The colonoscopy was performed without difficulty. The patient tolerated the procedure well. The quality of the bowel preparation was good. Moderate Sedation: Moderate (conscious) sedation was administered by the endoscopy nurse and supervised by the endoscopist. The following parameters were monitored: oxygen saturation, heart rate, blood pressure, and response to care. Total physician intraservice time was 2 minutes. Scope In: 7:59:48 AM Scope Withdrawal Time 0 hours 10 minutes 13 seconds Scope Out: 8:14:53 AM Total Procedure Duration Time 0 hours 15 minutes 5 seconds Findings: The perianal and digital rectal examinations were normal. A few small-mouthed diverticula were found in the sigmoid colon and descending colon. The exam was otherwise without abnormality on direct and retroflexion views. Impression: - Diverticulosis in the sigmoid colon and in the descending colon. - The examination was otherwise normal on direct and retroflexion views. - No specimens collected. Recommendation: - Discharge patient to home. - Resume previous diet. - Continue present medications. - Repeat colonoscopy in 5 years for surveillance. - Return to GI office PRN. Procedure Code(s): --- Professional --- G0105, Colorectal cancer screening; colonoscopy on individual at high risk CPT copyright 2017 [employer]. All rights reserved. The codes documented in this report are preliminary and upon metrologist review may be revised to meet current compliance requirements. Yogi Gil DO 06/22/2021 8:29:45 AM This report has been signed electronically. Number of Addenda: 1 Note Initiated On: 06/22/2021 7:47 AM Addendum Number: 1 Addendum Date: 01/03/2022 6:25:42 AM MAC was used as sedation for this procedure. Yogi Gil DO 01/03/2022 6:25:57 AM This report has been signed electronically.
--- NOTE | 2021-06-22 08:31 | OP.CCLET_ITS ---
01/03/2022 Raul Brady [address] [place] [address] Re : Colonoscopy procedure for Candace Kenneyer Dear Dr. Brady This procedure was performed on June. My impressions and recommendations are as follows: Impressions : - Diverticulosis in the sigmoid colon and in the descending colon. - The examination was otherwise normal on direct and retroflexion views. - No specimens collected. Recommendations : - Discharge patient to home. - Resume previous diet. - Continue present medications. - Repeat colonoscopy in 5 years for surveillance. - Return to GI office PRN. My findings are described in the full procedure note, which is enclosed. If I can be of further assistance, please feel free to contact me at . Sincerely, Yogi Friend, 06/22/2021 8:29:45 AM This report has been signed electronically.
== END 2021-06-22 23:59 | disposition home or self-care (01) ==
LOC: EN 06:22 → AC 06:24
PROVIDERS: PCP Student in an Organized Health Care Education/Training Program; Referring Provider Student in an Organized Health Care Education/Training Program; Visit Provider Internal Medicine Gastroenterology
PROC: 0DJD8ZZ Inspection of Lower Intestinal Tract, Via Natural or Artificial Opening Endoscopic (ICD-10-PCS; CPT 45378; principal; 2021-06-22 07:25)
DX: Z12.11 Encounter for screening for malignant neoplasm of colon (principal); M35.1 Other overlap syndromes; K57.30 Diverticulosis of large intestine without perforation or abscess without bleeding; E03.9 Hypothyroidism, unspecified; Z79.82 Long term (current) use of aspirin; Z79.899 Other long term (current) drug therapy; Z78.0 Asymptomatic menopausal state; Z86.010 Personal history of colon polyps; Z80.0 Family history of malignant neoplasm of digestive organs
CPT/HCPCS: J7120; J2405

== ENCOUNTER → 2022-11-29 | Outpatient (CLI) | payer MEDICARE, SELFPAY | END | disposition home or self-care (01) | PROVIDERS: PCP Student in an Organized Health Care Education/Training Program; Referring Provider Otolaryngology Otolaryngology/Facial Plastic Surgery; Visit Provider Otolaryngology Otolaryngology/Facial Plastic Surgery | DX: L02.92 Furuncle, unspecified (principal) | CPT/HCPCS: 87070; 87077; 87186; 87205 ==

== ENCOUNTER 2022-12-25 08:38 | Emergency (ER) | payer MEDICARE, OTHER, SELFPAY ==
[2022-12-25 08:40] VITALS: BP 120/92; PULSE 63; RESP 14; TEMP 36.6; O2SAT 100; BMI 22.6
--- NOTE | 2022-12-25 08:51 | EDS_ITS ---
HPI History of Present Illness Chief Complaint: Headache PFSH PFSH Medical History (Updated 06/19/21 @ 12:33 by Janessa Rao) Cardiology follow-up encounter Former smoker High cholesterol History of echocardiogram Hypothyroidism Interstitial lung disease Migraine headache Mixed connective tissue disease PFO (patent foramen ovale) Post-menopausal Thyroid disease Wears glasses Home Medications aspirin 81 mg chewable tablet 81 mg PO DAILY@0800 heart health 02/12/13 [History Last Taken 06/11/19] estradiol 10 mcg vaginal tablet (Vagifem) 10 mcg VG MOWEFR hormone 02/12/13 [History Last Taken 06/10/19] thyroid (pork) 90 mg tablet ([place] Thyroid) 60 mg PO DAILY thyroid 02/12/13 [History Last Taken 06/11/19] cyclosporine 0.05 % eye drops in a dropperette (Restasis) 1 drp ophthalmic (eye) BID dry eye 08/26/14 [History Last Taken 06/11/19] calcium phosphate 250 mg-vitamin D3 10 mcg (400 unit) chewable tablet 2 ea PO DAILY supplement 06/11/19 [History Last Taken 06/11/19] cholecalciferol (vitamin D3) 50 mcg (2,000 unit) capsule 2,000 unit PO QODAY supplement 06/11/19 [History Last Taken 06/11/19] pediatric multivitamin 1 ea PO DAILY supplement 06/11/19 [History Last Taken 06/11/19] peg 3350-electrolytes 236 gram-22.74 gram-6.74 gram-5.86 gram solution (Golytely) 240 ml PO Q10M #4,000 mL 05/05/21 [Rx Last Taken Unknown] zinc 50 mg capsule 50 mg PO DAILY 06/19/21 [History Last Taken Unknown] metoclopramide HCl 5 mg tablet (Reglan) 5 mg PO Q8H PRN PRN nausea and vomiting 7 days #20 tabs 12/25/22 [Rx Last Taken Unknown] Allergy/AdvReac Type Severity Reaction Status Date / Time codeine Allergy Rash Verified 12/25/22 08:39 epinephrine Allergy Nausea/Vom/Diarrhea/Heart Verified 12/25/22 08:39 Racing promethazine HCl Allergy Rash Verified 12/25/22 08:39 [From Phenergan] Surgical History (Updated 06/19/21 @ 12:30 by Janessa Rao) Hx of breast augmentation Hx of colonoscopy Hx of surgical procedure Hx of tonsillectomy Social History Smoking Status: Former smoker EXAM Physical Exam Const Vital Signs: 12/25/22 08:40 Temperature 98 F Temperature Source Temporal Pulse Rate 63 Respiratory Rate 14 Blood Pressure 120/92 H Blood Pressure Mean 101 Pulse Ox 100 Oxygen Delivery Method Room Air [facility] Narrative Medical decision making narrative: HISTORY OF PRESENT ILLNESS: 67-year-old female here with headache nausea body aches after going on a 2-week road trip. States she is having episodes of feeling lightheaded headaches which she describes as head jerking. She notes episode of shaking that has since resolved. Denies loss of consciousness or seizure-like activity no tongue biting or bowel or bladder incontinence. No history of seizures. Denies diarrhea or vomiting. Denies loss of taste or smell. Is vaccinated against COVID-19. She also notes fatigue feeling body aches but no fever or chills noted. Patient denies sudden onset or thunderclap headache, denies maximal intensity within 1 minute, vomiting, neck pain, stiffness, changes in vision, fever, history malignancy, syncope, or seizures associated with headache. REVIEW OF SYSTEMS: Pertinent positives: Headache, nausea, body aches, chills Pertinent negatives: Slurred speech, loss of vision PHYSICAL EXAM: Nursing triage notes reviewed, Vital signs reviewed Constitutional: please see mdm HENT: MMM, no temporal artery tenderness noted Eyes: Pupils equal round and reactive to light, Extraocular muscles intact Neck: No stridor, no JVD, full neck ROM Lungs: Clear to auscultation, No wheezing or rales. No increased work of breathing, no conversational dyspnea, no accessory muscle use, no nasal flaring. No respiratory distress noted Heart: Regular rate and rhythm, No murmurs, No rubs and No gallops, 2+ distal pulses (radial, femoral, posterior tibial) in all extremities Abdomen: Soft, there is no tenderness, rigidity, rebound or guarding, no obvious peritoneal signs, no palpable pulsatile abdominal masses, no auscultated abdominal bruit : No CVAT Extremities: No edema Neuro: Alert and oriented x3, neuro exam at baseline, cranial nerves II through XII are intact. No pain with extraocular muscle movement. There is negative test of skew. 5 of 5 strength in upper and lower extremities in flexion extension. Intact sensation to light touch in upper and lower extremity dermatomes. No truncal or extremity ataxia. No dysdiadochokinesia. Normal gait. 2+ reflexes in upper and lower extremities. No meningeal signs. Negative Babinski. NIH of 0. Skin: No rash or lesions noted MEDICAL DECISION MAKING: Chief Complaint: Headache, nausea, body aches External records reviewed: No recent advanced imaging of the brain noted. MRI of the brain from 2020 shows IMPRESSION: Normal unenhanced MRI of the brain. Factors affecting care: n mixed connective tissue disease Social determinants of health: former smoker History obtained from others: Patient's daughter Consults: none ALL IMAGES (IF OBTAINED) HAVE BEEN PERSONALLY REVIEWED AND INTERPRETED BY MYSELF. EKG with normal sinus rhythm, normal axis, no intervals, no STEMI, similar morphology to prior EKG in 2020 CBC without significant leukocytosis, no evidence of leukocytosis or thrombocytopenia BMP without evidence of significant electrolyte abnormalities, no anion gap, no acute kidney injury. LFTs show no evidence of hepatobiliary pathology. CT scan of the brain shows no evidence of intracranial normality I have personally reviewed the patient's chest x-ray. Chest x-ray is unre markable for pulmonary edema, pneumothorax, pneumonia or focal cardiopulmonary abnormality. COVID/flu negative MDM Narrative: Patient was hemodynamically stable, afebrile, nontoxic-appearing. No focal neurologic deficits. NIH of 0. I considered the following differential diagnosis: ICH, mass to explain patient's headache, COVID-19 other viral illness to explain the patient's body aches and nausea, anemia, arrhythmia, pneumonia. I obtained a broad lab and imaging work-up to further elucidate the etiology of the patient's complaints. Labs images were remarkable for no evidence of COVID-19 or flu. No evidence of myocardial ischemia on EKG. No evidence of intracranial mass or bleeding. No evidence of pneumonia on chest x-ray. No clear etiology explain the patient's symptoms. Unlikely that her presentation is associated with a life or limb threatening etiology given nonfocal neuro exam, stable vitals, unremarkable lab and imaging work-up. Likely etiology is viral illness given recent travel. The Patient is appropriate for discharge home with instructions take Tylenol, ibuprofen as well as a prescription for p.o. Reglan. She was instructed to follow-up with primary care physician as an outpatient the next available appointment. She given strict return precautions. The patient and/or family, caregivers express understanding. The patient and/or family, caregivers agrees with the plan. Shared decision making: I will have a discussion with the patient and or visitors regarding risk/benefits of further testing or admission. They will be made aware of of the risk/benefits inherent in this decision they will be given the opportunity to voice understanding. Total critical care time today provided was at least 0 minutes. This excludes separately billable procedures. Critical care time (if documented) is secondary to the patient having high probability of clinically significant/life threatening deterioration in the patient's condition which required my urgent intervention. Impression: 1. Acute headache 2. Myalgias 3. Nausea Dispo: Discharge Lab Data Attestation: I reviewed the patient's lab results. Labs: Laboratory Results - last 24 hr 12/25/22 12/25/22 09:20 10:13 WBC 4.2 L RBC 5.55 H Hgb 15.1 H Hct 48.6 H MCV 87.6 MCH 27.2 MCHC 31.1 L RDW Std Deviation 43.4 RDW Coeff of Amandeep 13.4 Plt Count 340 MPV 9.7 Immature Gran % (Auto) 0.200 Neut % (Auto) 49.8 Lymph % (Auto) 37.7 [place] % (Auto) 9.4 Eos % (Auto) 1.7 Baso % (Auto) 1.2 H Absolute Neuts (auto) 2.1 Absolute Lymphs (auto) 1.60 Nucleated RBC % 0 Sodium 143 Potassium 3.9 Chloride 110 H Carbon Dioxide 28.0 Anion Gap 5 BUN 16 Creatinine 1.00 Estim Creat Clear Calc 47.79 Est GFR (MDRD) Af Amer 71 Est GFR (MDRD) Non-Af 59 L BUN/Creatinine Ratio 16.0 Glucose 107 H Calcium 8.8 Total Bilirubin 0.50 AST 16 ALT 24 Alkaline Phosphatase 89 Total Protein 6.7 Albumin 3.4 Globulin 3.3 Albumin/Globulin Ratio 1.0 Urine Color Yellow Urine Clarity Clear Urine pH 7.0 Ur Specific [place]y 1.010 Urine Protein Negative Urine Glucose (UA) Normal Urine Ketones Negative Urine Occult Blood Negative Urine Nitrite Negative Urine Bilirubin Negative Urine Urobilinogen Normal Ur Leukocyte Esterase 100 H Urine RBC 0 SEEN Urine WBC 0 SEEN Ur Squamous Epith Cells 0 SEEN Urine Bacteria 0 SEEN Urine Mucus 0 SEEN Radiography Chest X-Ray - ED: Read by ED Physician Diagnostic Testing: Clinical Impression(s) from Imaging Studies Brain CT 12/25/22 09:09 IMPRESSION: Normal unenhanced CT scan of the brain. Electronically Signed: Chapo Granda MD at 9:53 EDT , Chest X-Ray 12/25/22 09:30 IMPRESSION: Hyperinflation. No acute abnormality is seen. Electronically Signed: Chapo Granda MD at 9:54 EDT , Discharge Plan Triage Chief Complaint: Headache ED Provider: Donato Alba Dx/Rx/DC Orders Instructions: ED Headache Unspecified Prescriptions: New metoclopramide HCl [Reglan] 5 mg tablet 5 mg PO Q8H PRN PRN (Reason: nausea and vomiting) 7 Days Qty: 20 0RF No Action thyroid (pork) [[place] Thyroid] 90 MG tablet 60 mg PO DAILY estradiol [Vagifem] 10 MCG tablet 10 mcg VG MOWEFR aspirin 81 MG tablet,chewable 81 mg PO DAILY@0800 cyclosporine [Restasis] 1 DROP dropperette 1 drp ophthalmic (eye) BID pediatric multivitamin 1 EACH tablet,chewable 1 ea PO DAILY cholecalciferol (vitamin D3) 2,000 UNIT capsule 2,000 unit PO QODAY calcium phosphate-vitamin D3 1 EACH tablet,chewable 2 ea PO DAILY zinc 50 mg Capsule 50 mg PO DAILY peg 3350-electrolytes [Golytely] 236-22.74-6.74 -5.86 gram recon soln 240 ml PO Q10M Qty: 4000 0RF Rx Instructions: until fecal effluent is clear Primary Care Provider: Raul Brady Referrals: Raul Brady DO [Primary Care Provider] - Activity Restrictions/Additional Instructions: Thank you for trusting us with your care today! Please take Tylenol (2 pills, 650 mg), ibuprofen (2 pills, 400 mg) every 6 hours as needed for pain and fever control. Please take Reglan for headache and nausea control as needed every 8 hours Please return to the emergency department if your symptoms change or worsen. Specifically develop worsening headache, change in vision, slurred speech, facial drooping, loss of sensation or movement in your arms or legs. Please follow with your primary care physician for further outpatient evaluation and management. Disposition Disposition: Home, Self Care Discharge Date/Time: 12/25/22 12:35
--- NOTE | 2022-12-25 09:09 | CT_ITS ---
STUDY: CT BRAIN WITHOUT CONTRAST REASON FOR EXAM: Female, 67 years old. MEJIA r/o bleed or mass RADIATION DOSAGE (If Supplied By Facility): CTDIvol = ( 44.99 ) mGy, DLP = ( 779.24 ) mGycm TECHNIQUE: Transaxial CT imaging of the brain was performed without administration of intravenous contrast material. Individualized dose optimization techniques were used for this CT. COMPARISON: Comparison is made with prior examination of June 11, 2019. FINDINGS: Normal soft tissue structures. Normal calvarium. Normal size ventricles and extra-axial spaces for the patient''s age. Normal white matter tracts of the cerebral hemispheres. Normal basal ganglia and thalami. Normal brainstem. Normal cerebellum. There is no intracranial hemorrhage. There are no findings of an acute ischemic infarction. Atherosclerotic plaque formation of the cavernous portions of the internal carotid arteries bilaterally. Normal visualized paranasal sinuses. CT/Brain/Head without Contrast IMPRESSION: Normal unenhanced CT scan of the brain. Electronically Signed: Chapo Granda MD at 9:53 EDT ,
--- NOTE | 2022-12-25 09:10 | EKG12_ITS ---
Test Reason : Blood Pressure : / mmHG Vent. Rate : 065 BPM Atrial Rate : 065 BPM P-R Int : 182 ms QRS Dur : 084 ms QT Int : 426 ms P-R-T Axes : 076 086 065 degrees QTc Int : 443 ms Normal sinus rhythm Right atrial enlargement Nonspecific ST abnormality Abnormal ECG Confirmed by RAOUL ROMO, RADHA ([id number]), metropolitan editor MARIMAR MORALES ([id number]) on 01/01/2023 10:11:34 AM Referred By: Confirmed By:ZORAN SILVEIRA MD
[2022-12-25] MEDS: 0.9% Normal Saline (1000mL) 1,000 ML 1000 ML IV (09:19)
--- NOTE | 2022-12-25 09:30 | RAD_ITS ---
STUDY: X-RAY CHEST REASON FOR EXAM: Female, 67 years old. Fatigue, cough r/o PNA TECHNIQUE: Single AP portable view of the chest. COMPARISON: None. FINDINGS: Hyperinflation. Calcified granulomas. There is no demonstrated pleural abnormality. Normal size heart. Normal mediastinum and radha. Normal visualized pulmonary arteries. Normal visualized aortic arch and descending thoracic aorta. Normal visualized thoracic spine. Normal visualized ribs, clavicles, and shoulders. There is no demonstrated abnormality of the visualized soft tissue structures of the upper abdomen. RAD/Chest 1 View (Portable) IMPRESSION: Hyperinflation. No acute abnormality is seen. Electronically Signed: Chapo Granda MD at 9:54 EDT ,
[2022-12-25 09:47] LABS: Absolute Neutrophil Count 2.1 X10^3/uL (2.0-7.7); Basophil# 0.05 X10^3/uL; Basophil% 1.2 % (0-1); Eosinophil# 0.07 X10^3/uL; Eosinophils% 1.7 % (0-5); Hematocrit 48.6 % (37-47); Hemoglobin 15.1 g/dL (12.0-15.0); Lymphocyte % 37.7 % (19-41); Mean Corp Hgb Conc 31.1 g/dL (32-36); Mean Corpuscular Hgb 27.2 pg (27.0-32.0); Mean Corpuscular Volume 87.6 fL (81-99); Mean Platelet Vol. 9.7 fl (6.2-12.0); Monocyte% 9.4 % (0-10); NRBC Flagged by Analyzer 0 % (0-5); Neutrophil # 2.11 X10^3/uL (2.7-7.7); Neutrophil % 49.8 % (47-70); Platelet Count 340 K/mm3 (150-450); RBC Distribution Width CV 13.4 % (11.6-14.6); RBC Distribution Width SD 43.4 fl (35.1-43.9); Red Blood Count 5.55 M/mm3 (4.2-5.4); White Blood Count 4.2 K/mm3 (4.4-11.0)
[2022-12-25 09:52] LABS: AST(SGOT) 16 U/L (15-37); Alanine Aminotransfer ALT/SGPT 24 U/L (13-56); Albumin, Serum 3.4 g/dL (3.2-5.0); Alkaline Phosphatase 89 U/L (45-117); Anion Gap 5 (5-15); BUN 16 mg/dL (7-18); Calcium,Total 8.8 mg/dL (8.5-10.1); Chloride 110 mmol/L (98-107); EST Glomerular Filtration Rate 59 mL/min (>60); Est Glom Filt Rate - Afr Amer 71 mL/min (>60); Estimated Creatinine Clearance 47.79 ml/min; Globulin 3.3 g/dL (2.2-4.2); Glucose 107 mg/dL (74-106); Potassium 3.9 mmol/L (3.5-5.1); Protein, Total 6.7 g/dL (6.4-8.2); Sodium Level 143 mmol/L (136-145)
[2022-12-25 10:21] LABS: Bacteria 0 SEEN /hpf (None Seen); Mucous, Urine 0 SEEN /hpf (<or=2+); Red Blood Cells-Urine 0 SEEN /hpf (0-5); Squamous Epithelial Cells - UA 0 SEEN /hpf (5-10); White Blood Cells 0 SEEN /hpf (0-5)
[2022-12-25 10:22] LABS: Color, Urine Yellow (Yellow); Glucose, Dipstick Normal (Normal); Ketone-Dipstick Negative (Negative); Leukocyte Esterase-Dipstick 100 /ul (Negative); Nitrite-Dipstick Negative (Negative); Occult Blood-Urine Negative /ul (Negative); Protein-Dipstick Negative (Negative); Urine Bilirubin Dipstick Negative (Negative); Urine Clarity Clear (Clear); Urine Urobilinogen Normal (Normal)
== END 2022-12-25 12:35 | disposition home or self-care (01) ==
PROVIDERS: Emergency Provider Emergency Medicine; PCP Student in an Organized Health Care Education/Training Program; Visit Provider Emergency Medicine
DX: R51.9 Headache, unspecified (principal); M79.10 Myalgia, unspecified site; R11.0 Nausea; E78.00 Pure hypercholesterolemia, unspecified; E03.9 Hypothyroidism, unspecified; Z20.822 Contact with and (suspected) exposure to COVID-19; Z79.82 Long term (current) use of aspirin; Z79.899 Other long term (current) drug therapy; Z87.891 Personal history of nicotine dependence
CPT/HCPCS: 70450; 71045; 80053; 81001; 85025; 87428; 93005; 96361; 96374; 99283; J7030

== ENCOUNTER 2023-01-13 22:34 | Emergency (ER) | payer MEDICARE, OTHER, SELFPAY ==
[2023-01-13 22:35] VITALS: BP 141/76; PULSE 64; RESP 18; TEMP 36.1; O2SAT 100; BMI 21.9
[2023-01-13 22:37] VITALS: BP 141/76; PULSE 64; RESP 18; TEMP 36.1; O2SAT 100
--- NOTE | 2023-01-13 23:30 | EKG12_ITS ---
Test Reason : DYSRHYTHMIA Blood Pressure : / mmHG Vent. Rate : 077 BPM Atrial Rate : 077 BPM P-R Int : 180 ms QRS Dur : 068 ms QT Int : 392 ms P-R-T Axes : 072 091 076 degrees QTc Int : 443 ms Normal sinus rhythm with sinus arrhythmia Biatrial enlargement Rightward axis Septal infarct , age undetermined Abnormal ECG Confirmed by JOSUÉ FOX MD ([id number]), development editor JAMEY BARON ([id number]) on 01/15/2023 12:47:22 PM Referred By: JULIAN Confirmed By:JOSUÉ FOX MD
--- NOTE | 2023-01-13 23:30 | RAD_ITS ---
INDICATION: weakness EXAMINATION/TECHNIQUE: X-RAY - XR Chest 1 View COMPARISON: Chest x-ray from 12/25/2022 FINDINGS: LINES/DEVICES: None. LUNGS: Hyperexpanded lungs again noted with small, benign right basilar granulomatous calcification. No pulmonary edema or focal airspace consolidation. No sizable pleural effusion. No pneumothorax detected. MEDIASTINUM AND CARDIOVASCULAR STRUCTURES: Heart size within normal limits. Mediastinal contours unremarkable. BONES AND SOFT TISSUES: No acute findings. RAD/Chest 1 View (Portable) IMPRESSION: COPD Electronically Signed: Faheem Mcginnis MD at 0:32 EDT ,
--- NOTE | 2023-01-13 23:32 | EX.ED.VIS.HA ---
HPI History of Present Illness Chief Complaint: Headache Narrative Narrative: 67-year-old female presenting with headache, a shaking episode. She has had this both in the past. She has a history of migraine. She was recently seen for symptoms very similar and had a full work-up including a CT. She was discharged home. She states she sees Dr. Raul Brady has had fluid in her right ear and she is on Flonase and has had 2 courses of a Z-Gordon as well as amoxicillin. No fevers or chills. No nausea or vomiting. She states she has a history of migraine but has not had any aura. She states her primary care states that this new shaking that she has had might be her new aura. No chest pain or shortness of breath. [facility] Medical History Cardiology follow-up encounter Former smoker High cholesterol History of echocardiogram Hypothyroidism Interstitial lung disease Migraine headache Mixed connective tissue disease PFO (patent foramen ovale) Post-menopausal Thyroid disease Wears glasses Home Medications aspirin 81 mg chewable tablet 81 mg PO DAILY@0800 heart health 02/12/13 [History Last Taken 06/11/19] estradiol 10 mcg vaginal tablet (Vagifem) 10 mcg VG MOWEFR hormone 02/12/13 [History Last Taken 06/10/19] thyroid (pork) 90 mg tablet ([place] Thyroid) 60 mg PO DAILY thyroid 02/12/13 [History Last Taken 06/11/19] cyclosporine 0.05 % eye drops in a dropperette (Restasis) 1 drp ophthalmic (eye) BID dry eye 08/26/14 [History Last Taken 06/11/19] calcium phosphate 250 mg-vitamin D3 10 mcg (400 unit) chewable tablet 2 ea PO DAILY supplement 06/11/19 [History Last Taken 06/11/19] cholecalciferol (vitamin D3) 50 mcg (2,000 unit) capsule 2,000 unit PO QODAY supplement 06/11/19 [History Last Taken 06/11/19] pediatric multivitamin 1 ea PO DAILY supplement 06/11/19 [History Last Taken 06/11/19] zinc 50 mg capsule 50 mg PO DAILY 06/19/21 [History Last Taken Unknown] metoclopramide HCl 5 mg tablet (Reglan) 5 mg PO Q8H PRN PRN nausea and vomiting 7 days #20 tabs 12/25/22 [Rx Last Taken Unknown] cephalexin 500 mg capsule 500 mg PO Q12 #14 CAPSULES 01/14/23 [Rx Last Taken Unknown] Allergy/AdvReac Type Severity Reaction Status Date / Time codeine Allergy Rash Verified 01/13/23 22:35 epinephrine Allergy Nausea/Vom/Diarrhea/Heart Verified 01/13/23 22:35 Racing promethazine HCl Allergy Rash Verified 01/13/23 22:35 [From Phenergan] Surgical History Hx of breast augmentation Hx of colonoscopy Hx of surgical procedure Hx of tonsillectomy Social History Smoking Status: Former smoker ROS ROS ED Constitutional Constitutional ED: Denies chills, fever(s) or sweats Eyes Eyes: Denies blurry vision or change in vision ENT ENT ED: Denies ear pain or sore throat Cardiovascular Cardiovascular: Denies chest pain, palpitations or racing heartbeat Respiratory/Chest Respiratory/Chest: Denies cough, dyspnea or sputum Gastrointestinal Gastrointestinal: Denies abdominal pain, constipation, diarrhea, nausea or vomiting Genitourinary Genitourinary ED: Denies dysuria, hematuria or urinary frequency Musculoskeletal Musculoskeletal: Denies arthralgias, myalgias or neck pain Integumentary Denies abscess, Abrasions or rash Neurologic Neurologic: Reports headache(s); Denies paresthesias or weakness Psychiatric Psychiatric: Denies anxiety, depression, suicidal ideation or suicidal thoughts Endocrine Endocrinology: Denies polydipsia or polyuria EXAM Physical Exam Const Vital Signs: 01/13/23 22:35 01/13/23 22:37 Temperature 97 F L 97 F L Temperature Source Temporal Temporal Pulse Rate 64 64 Respiratory Rate 18 18 Blood Pressure 141/76 H 141/76 H Blood Pressure Mean 97 97 Pulse Ox 100 100 Positive well nourished General Appearance ED: NAD; Negative for pallor HEENT Reports normocephalic and TM's clear atraumatic Tympanic Membrane ED: Yes TM's clear Eyes PERRL and EOMs intact bilaterally Neck no lymphadenopathy and supple Resp normal respiratory effort and clear to auscultation bilaterally Auscultation: Negative for rales, rhonchi or wheezes Cardio regular rate and regular rhythm GI non-tender and non-distended Extremity normal to inspection and full ROM Neuro oriented x3 and CN's II-XII intact bilaterally Sensorium / Orientation: awake and alert Speech: speech normal Gait (Neuro): normal gait Motor Exam: strength 5/5 throughout Psych mental status grossly normal Skin General Skin Exam: Negative for jaundice or pallor MDM MDM MDM Narrative Medical decision making narrative: Patient presented with headache and she had episode of shaking earlier. Differential includes migraine, headache, dehydration, electrolyte abnormalities, anemia. CBC will be obtained to assess white blood cell count, hemoglobin, platelets. BMP to assess renal function electrolytes. High-sensitivity troponin and EKG to assess for ischemia. Chest x-ray to rule out pneumonia. She is given a migraine cocktail with Reglan, Benadryl, Toradol. She is given a liter normal saline. CBC shows a white blood cell count which is normal at 6.1. Hemoglobin stable at 12.8. Platelets normal. Creatinine slightly elevated today patient was given IV fluids. Electrolytes are normal. LFTs are normal. High-sensitivity troponin is 7. EKG sinus rhythm with a ventricular rate of 77 bpm without signs of dysrhythmia or ischemia on my interpretation. Chest x-ray my interpretation shows no acute process. Alysis suspicious for UTI patient started on Keflex. First dose given in the ER. I gave her referral for neurology for the tremors that she has been experiencing. Return precautions were discussed. Impression 1. UTI 2. Tremors 3. Headache Lab Data Labs: Laboratory Results - last 24 hr 01/13/23 01/13/23 01/14/23 00:30 23:43 00:30 WBC 6.1 RBC 4.65 Hgb 12.8 Hct 40.7 MCV 87.5 MCH 27.5 MCHC 31.4 L RDW Std Deviation 42.6 RDW Coeff of Amandeep 13.3 Plt Count 291 MPV 10.3 Immature Gran % (Auto) 1.600 H Neut % (Auto) 71.7 H Lymph % (Auto) 16.4 L [place] % (Auto) 8.5 Eos % (Auto) 0.8 Baso % (Auto) 1.0 Absolute Neuts (auto) 4.4 Absolute Lymphs (auto) 1.00 Nucleated RBC % 0 Sodium 140 Potassium 3.6 Chloride 108 H Carbon Dioxide 26.0 Anion Gap 6 BUN 24 H Creatinine 1.31 H Estim Creat Clear Calc 36.48 Est GFR (MDRD) Af Amer 52 L Est GFR (MDRD) Non-Af 43 L BUN/Creatinine Ratio 18.3 Glucose 113 H Calcium 8.6 Total Bilirubin 0.30 AST 14 L ALT 23 Alkaline Phosphatase 75 Troponin I High Sens 7 Total Protein 6.0 L Albumin 3.1 L Globulin 2.9 Albumin/Globulin Ratio 1.1 Urine Color Yellow Urine Clarity Clear Urine pH 7.0 Ur Specific [place] 1.015 Urine Protein Negative Urine Glucose (UA) Normal Urine Ketones Negative Urine Occult Blood Negative Urine Nitrite Negative Urine Bilirubin Negative Urine Urobilinogen Normal Ur Leukocyte Esterase 500 H Urine RBC 0 SEEN Urine WBC 10-25 SEEN Ur Squamous Epith Cells 0 SEEN Urine Bacteria RARE Urine Mucus 0 SEEN Radiography Diagnostic Testing: Clinical Impression(s) from Imaging Studies Chest X-Ray 01/13/23 23:30 IMPRESSION: COPD Electronically Signed: Faheem Mcginnis MD at 0:32 EDT , Discharge Plan Triage Chief Complaint: Headache ED Provider: Gasper Muhammad Dx/Rx/DC Orders Instructions: ED Headache Unspecified, ED Cystitis Female Adult Prescriptions: New cephalexin 500 mg capsule 500 mg PO Q12 Qty: 14 0RF No Action thyroid (pork) [[place] Thyroid] 90 MG tablet 60 mg PO DAILY estradiol [Vagifem] 10 MCG tablet 10 mcg VG MOWEFR aspirin 81 MG tablet,chewable 81 mg PO DAILY@0800 cyclosporine [Restasis] 1 DROP dropperette 1 drp ophthalmic (eye) BID pediatric multivitamin 1 EACH tablet,chewable 1 ea PO DAILY cholecalciferol (vitamin D3) 2,000 UNIT capsule 2,000 unit PO QODAY calcium phosphate-vitamin D3 1 EACH tablet,chewable 2 ea PO DAILY zinc 50 mg Capsule 50 mg PO DAILY metoclopramide HCl [Reglan] 5 mg tablet 5 mg PO Q8H PRN PRN (Reason: nausea and vomiting) 7 Days Qty: 20 0RF Primary Care Provider: Raul Brady Referrals: Raul Brady DO [Primary Care Provider] - Gaetano Harry MD [Non-Staff -Ordering Privileges] - 3-5 Days Disposition Disposition: Home, Self Care
[2023-01-13] MEDS: 0.9% Normal Saline (1000mL) 1,000 ML 1000 ML IV (23:43)
[2023-01-13] MEDS: DiphenhydrAMINE 50 MG/ML Syringe 25 MG IV (23:43)
[2023-01-13] MEDS: Ketorolac 15 MG/ML Vial IV (23:44)
[2023-01-14 00:16] LABS: ALB/GLOB Ratio 1.1 RATIO (0.9-2.4); AST(SGOT) 14 U/L (15-37); Alanine Aminotransfer ALT/SGPT 23 U/L (13-56); Albumin, Serum 3.1 g/dL (3.2-5.0); Alkaline Phosphatase 75 U/L (45-117); Anion Gap 6 (5-15); BUN 24 mg/dL (7-18); BUN/Creat Ratio 18.3 RATIO (10-20); Calcium,Total 8.6 mg/dL (8.5-10.1); Chloride 108 mmol/L (98-107); Creatinine, Serum 1.31 mg/dL (0.55-1.02); EST Glomerular Filtration Rate 43 mL/min (>60); Est Glom Filt Rate - Afr Amer 52 mL/min (>60); Estimated Creatinine Clearance 36.48 ml/min; Globulin 2.9 g/dL (2.2-4.2); Glucose 113 mg/dL (74-106); Potassium 3.6 mmol/L (3.5-5.1); Sodium Level 140 mmol/L (136-145); Troponin-I HS 7 pg/mL (3.0-54.0)
[2023-01-14] MEDS: 0.9% Normal Saline (1000mL) 1,000 ML 999 ML IV (00:31)
[2023-01-14 00:36] LABS: Mucous, Urine 0 SEEN /hpf (<or=2+); Red Blood Cells-Urine 0 SEEN /hpf (0-5); Squamous Epithelial Cells - UA 0 SEEN /hpf (5-10)
[2023-01-14 00:41] LABS: Color, Urine Yellow (Yellow); Glucose, Dipstick Normal (Normal); Ketone-Dipstick Negative (Negative); Leukocyte Esterase-Dipstick 500 /ul (Negative); Nitrite-Dipstick Negative (Negative); Occult Blood-Urine Negative /ul (Negative); Protein-Dipstick Negative (Negative); Specific Gravity, Urine 1.015 (1.002-1.030); Urine Bilirubin Dipstick Negative (Negative); Urine Clarity Clear (Clear); Urine Urobilinogen Normal (Normal)
[2023-01-14 00:51] LABS: Absolute Neutrophil Count 4.4 X10^3/uL (2.0-7.7); Basophil# 0.06 X10^3/uL; Eosinophil# 0.05 X10^3/uL; Eosinophils% 0.8 % (0-5); Hematocrit 40.7 % (37-47); Hemoglobin 12.8 g/dL (12.0-15.0); Lymphocyte % 16.4 % (19-41); Mean Corp Hgb Conc 31.4 g/dL (32-36); Mean Corpuscular Hgb 27.5 pg (27.0-32.0); Mean Corpuscular Volume 87.5 fL (81-99); Mean Platelet Vol. 10.3 fl (6.2-12.0); Monocyte# 0.52 X10^3/uL; Monocyte% 8.5 % (0-10); NRBC Flagged by Analyzer 0 % (0-5); Neutrophil # 4.36 X10^3/uL (2.7-7.7); Neutrophil % 71.7 % (47-70); Platelet Count 291 K/mm3 (150-450); RBC Distribution Width CV 13.3 % (11.6-14.6); RBC Distribution Width SD 42.6 fl (35.1-43.9); Red Blood Count 4.65 M/mm3 (4.2-5.4); White Blood Count 6.1 K/mm3 (4.4-11.0)
[2023-01-14 00:54] LABS: Bacteria RARE /hpf (None Seen); White Blood Cells 10-25 SEEN /hpf (0-5)
[2023-01-14 01:28] VITALS: BP 132/76; PULSE 66; RESP 16; O2SAT 98
[2023-01-14] MEDS: Cephalexin 250 MG Capsule 500 MG PO (01:35)
== END 2023-01-14 01:45 | disposition home or self-care (01) ==
PROVIDERS: Emergency Provider Student in an Organized Health Care Education/Training Program; PCP Student in an Organized Health Care Education/Training Program; Visit Provider Student in an Organized Health Care Education/Training Program
DX: N39.0 Urinary tract infection, site not specified (principal); R51.9 Headache, unspecified; Z87.891 Personal history of nicotine dependence; E78.00 Pure hypercholesterolemia, unspecified; R25.1 Tremor, unspecified
CPT/HCPCS: 71045; 80048; 80053; 81001; 84484; 85025; 93005; 96361; 96374; 96375; 99283; J7030; A4216

== ENCOUNTER → 2023-05-02 | Outpatient (CLI) | payer MEDICARE, OTHER, SELFPAY ==
--- NOTE | 2023-05-02 07:41 | MRI_ITS ---
STUDY: MRI CERVICAL SPINE WITHOUT CONTRAST REASON FOR EXAM: Female, 68 years old. SPINAL STENOSIS TECHNIQUE: Standardized fat and water weighted pulse sequences were obtained in the sagittal and axial planes. COMPARISON: CTA head and neck 06/11/2019. FINDINGS: Normal foramen magnum and brainstem-cervical cord junction. Normal craniovertebral junction. Normal anterior atlantoaxial articulation. Normal odontoid process. Normal cervical lordosis. Normal vertebral bodies and posterior osseous elements. C2-3: Normal endplates. Normal disc height, signal and morphology. Normal central canal and intervertebral neural foramina. C3-4: Normal endplates. Normal disc height, signal and morphology. Normal central canal and intervertebral neural foramina. C4-5: Normal endplates. Normal disc height, signal and morphology. Normal central canal and intervertebral neural foramina. C5-6: Normal endplates. Normal disc height, signal and morphology. Normal central canal and intervertebral neural foramina. C6-7: Normal endplates. Normal disc height, signal and morphology. Normal central canal and intervertebral neural foramina. C7-T1: Normal endplates. Normal disc height, signal and morphology. Normal central canal and intervertebral neural foramina. T1-T2, T2-T3, T3-T4, T4-T5 and T5-T6: (Sagittal only). Normal endplates. Normal disc height, signal and morphology. No ventral extradural defects. Normal central canal and intervertebral neural foramina. Normal cervical cord. Normal upper thoracic spinal cord. Normal included portions of brainstem and cerebellum. Normal visualized soft tissue structures. MRI/Spine Cervical (Routine) IMPRESSION: Normal unenhanced MR examination of the cervical spine and unchanged when compared to CTA neck of 06/11/2019. Electronically Signed: Vito Sumner MD at 9:56 EST ,
--- NOTE | 2023-05-02 07:46 | MRI_ITS ---
EXAM: MR HEAD WITHOUT AND WITH INTRAVENOUS CONTRAST CLINICAL INDICATION: Headache. TECHNIQUE: Multiplanar and multisequence MR images of the brain were obtained without and with intravenous contrast. CONTRAST: 11 mL of IV Clariscan. COMPARISON: MRI brain without contrast 06/12/2019. FINDINGS: BRAIN AND EXTRA-AXIAL SPACES: Unremarkable. No intra- or extra-axial hemorrhage. No evidence of acute infarct. There is preservation of the torres/white matter interface. Basal cisterns are patent. No focal signal abnormalities throughout the brain parenchyma in all pulse sequences. Following IV contrast administration, there are no abnormal enhancing lesions intra-axially and extra-axially. Prominent enhancing intramedullary vein in the midline superior vermis is normal focal DVA (developmental venous anomaly). The dural sinuses and cerebral veins are patent. SELLA: Unremarkable. Normal sella turcica, pituitary gland, infundibular stalk, optic chiasm and hypothalamus. AUDITORY SYSTEM: Unremarkable. The internal auditory canals are patent. BONES/JOINTS: Unremarkable. No discrete lytic or blastic abnormalities. SINUSES: Unremarkable as visualized. Clear. MASTOID AIR CELLS: Unremarkable as visualized. Clear. ORBITS: Unremarkable as visualized. Both globes, extraocular muscles, optic nerves and retrobulbar fat appear unremarkable. VASCULATURE: Normal flow void. Patent enhancing dural sinuses and cerebral veins.. MRI/Brain W/WO Contrast IMPRESSION: Normal MRI brain with and without contrast. Electronically Signed: Vito Sumner MD at 9:59 EST ,
--- NOTE | 2023-05-02 07:48 | MRI_ITS ---
STUDY: MRA OF THE HEAD WITHOUT CONTRAST REASON FOR EXAM: Female, 68 years old. HEADACHE, VERTIGO TECHNIQUE: 3-D [id number] (TOF) imaging was performed with MIPs. The study was performed unenhanced. COMPARISON: CTA head 06/11/2019. FINDINGS: Normal bilateral petrous carotid arteries. Normal right cavernous carotid artery with a normal supraclinoid bifurcation. Normal left cavernous carotid artery with a normal supraclinoid bifurcation. Normal right A1 segments of the anterior cerebral artery. Normal left A1 segments of the anterior cerebral artery. Normal intact anterior communicating artery (ACOM). Normal bilateral A2 segments of the anterior cerebral arteries. Normal right M1 and M2 segments of the middle cerebral arteries, with a normal M1 bifurcation. Normal left M1 and M2 segments of the middle cerebral arteries, with a normal M1 bifurcation. No visible right posterior communicating artery (PCOM). No visible left posterior communicating artery (PCOM). Normal bilateral vertebral arteries. The right vertebral artery is hypoplastic. Normal basilar artery with a normal basilar bifurcation. The visualized bilateral superior cerebellar (SCA) arteries are normal. Normal bilateral P1, P2 and visualized P3 segments of the posterior cerebral arteries. 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 No other suspicious intracranial aneurysm. There is no major vessel occlusion or hemodynamically significant stenosis. There is no demonstrated abnormality of the visualized brain. 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 RECOMMENDATION: CTA head for further evaluation since previous CTA head of 06/11/2019 was nondiagnostic (most of the contrast was on the venous side of the circulation). Electronically Signed: Vito Sumner MD at 10:09 EST ,
--- NOTE | 2023-05-02 07:49 | MRI_ITS ---
STUDY: MRA NECK WITH AND WITHOUT CONTRAST REASON FOR EXAM: Female, 68 years old. VERTIGO, INVOLUNTARY MOVEMENTS TECHNIQUE: 3-D [id number] (TOF) imaging was performed in an 1.5 T MRI scanner. 11 mL of IV Clariscan was administered for the contrast enhanced images. COMPARISON: None. FINDINGS: RIGHT CAROTID ARTERIES: Normal right common carotid artery (CCA). Normal right carotid bulb. Normal origin of the right internal carotid (ICA) artery without a hemodynamically significant stenosis. Normal visualized cervical portion of the right internal carotid artery. Normal origin of the right external carotid artery (ECA). LEFT CAROTID ARTERIES: Normal left common carotid artery (CCA). Normal left carotid bulb. Normal origin of the left internal carotid (ICA) artery without a hemodynamically significant stenosis. Normal visualized cervical portion of the left internal carotid artery. Normal origin of the left external carotid artery (ECA). VERTEBRAL ARTERIES: Normal antegrade flow within the bilateral vertebral artery without a hemodynamically significant stenosis. The right vertebral artery is markedly hypoplastic. AORTIC ARCH: Normal origins of the great vessels and normal aortic arch. MRI/MRA Neck WITH and W/O Contrast IMPRESSION: 1. Normal bilateral cervical carotid and vertebral arteries. 2. Normal aortic arch and origins of the great vessels. Electronically Signed: Vito Sumner MD at 10:16 EST ,
[2023-05-02 08:16] LABS: CREATININE FINGERSTICK < 1.0 mg/dL (0.55-1.02)
== END | disposition home or self-care (01) ==
PROVIDERS: PCP Student in an Organized Health Care Education/Training Program; Referring Provider Psychiatry & Neurology Sleep Medicine; Visit Provider Psychiatry & Neurology Sleep Medicine
DX: R42 Dizziness and giddiness (principal); R51.9 Headache, unspecified; M48.02 Spinal stenosis, cervical region; R25.1 Tremor, unspecified
CPT/HCPCS: 70544; 70549; 70553; 72141; A9575; A4216

== ENCOUNTER → 2023-05-24 | Outpatient (CLI) | payer MEDICARE, OTHER, SELFPAY ==
--- OUTSIDE RECORDS SUMMARY | 2023-05-24 10:08 | XMS RPT_ITS | CCD ---
Author Name Unknown Address [facility] [facility] [address] [place] [address] Organization [facility] Care Team Providers Care Field Broomer Name Role Phone Raul Boyer DO Primary Care Provider [phone] Raul Boyer DO Primary Care Provider Nohelia Hyde MD, Pancho Leiva Unavailable Angélica'YANETHBUCKKYUNG Attending Unavailable O'YANETH, KYUNG Referring Unavailable BOYER, RAUL L Primary Care Unavailable O'YANETH, KYUNG Attending Unavailable O'YANETH, KYUNG Referring Unavailable BOYER, RAUL L Primary Care Unavailable DHARA, DONNA Referring Unavailable BOYER, RAUL L Primary Care Unavailable BOYER, RAUL L Primary Care Unavailable DHARA DONNA Referring Unavailable DHARA DONNA Attending Unavailable BOYER, RAUL L Referring Unavailable BOYER, RAUL L Primary Care Unavailable BOYER, RAUL L Referring Unavailable BOYER, RAUL L Primary Care Unavailable BOYER, RAUL L Primary Care Unavailable BOYER, RAUL L Referring Unavailable BOYER, RAUL L Attending Unavailable BOYER, RAUL L Primary Care Unavailable BOYER, RAUL L Primary Care Unavailable PANCHO POZO JR Attending Unavailable LANNY, NAHEED Referring Unavailable BOYER, RAUL L Primary Care Unavailable THAYER, NAHEED Attending Unavailable BOYER, RAUL L Primary Care Unavailable THAYER, NAHEED Attending Unavailable BOYER, RAUL L Primary Care Unavailable THAYER, NAHEED Attending Unavailable O'YANETH, KYUNG Attending Unavailable O'YANETH, KYUNG Referring Unavailable BOYER, RAUL L Primary Care Unavailable O'YANETH, KYUNG Attending Unavailable O'YANETH, KYUNG Referring Unavailable BOYER, RAUL L Primary Care Unavailable O'YANETHSEKYUNG Referring Unavailable BOYER, RAUL L Primary Care Unavailable O'YANETHSEKYUNG Attending Unavailable O'YANETH, KYUNG Referring Unavailable BOYER, RAUL L Primary Care Unavailable O'YANETH, KYUNG Attending Unavailable BOYER, RAUL L Primary Care Unavailable BOYER, RAUL L Attending Unavailable BOYER, RAUL L Primary Care Unavailable BOYER, RALU L Referring Unavailable O'YANETH, KYUNG Attending Unavailable BOYER, RAUL L Primary Care Unavailable NAHEED THAYER Referring Unavailable BOYER, RAUL L Attending Unavailable BOYER, RAUL L Primary Care Unavailable BOYER, RAUL L Referring Unavailable BOYER, RAUL L Primary Care Unavailable BOYER, RAUL L Primary Care Unavailable SUMAYA PEACOCK R Referring Unavailable BOYER, RAUL L Primary Care Unavailable BOYER, RAUL L Attending Unavailable BOYER, RAUL L Primary Care Unavailable BOYER, RAUL L Referring Unavailable BOYER, RAUL L Primary Care Unavailable BOYER, RAUL L Primary Care Unavailable DONNA JULES Referring Unavailable Allergies Allergy Classification Reported Allergen(s) Allergy Type Date of Onset Reaction(s) Facility (20 sources) Alendronate; Translations: [ALENDRONATE SODIUM] Drug Allergy 03-18-2017 GI Upset [facility] Work Phone: (20 sources) Codeine; Translations: [CODEINE] Drug Allergy 11-13-2012 [facility] Work Phone: (20 sources) EPINEPHrine; Translations: [EPINEPHRINE] Drug Allergy 11-13-2012 [facility] Work Phone: (20 sources) moxifloxacin; Translations: [MOXIFLOXACIN] Drug Allergy 07-06-2009 [facility] Work Phone: (20 sources) Promethazine; Translations: [PROMETHAZINE HCL] Drug Allergy 11-13-2012 [facility] Work Phone: Medications Current Medications Medication Drug Class(es) Dates Sig (Normalized) Sig (Original) amoxicillin (AMOXIL) 400 mg/5 mL susr (1 source) Start: 01-10-2023 End: 01-17-2023 take 6.25 mL by mouth every twelve hours amoxicillin (AMOXIL) 400 mg/5 mL susr Indications: Acute otitis externa of right ear, unspecified type , Vertigo Take 6.25 mL by mouth every 12 hours for 7 days. 87.5 mL 0 01/10/2023 01/17/2023 Active Completed/Discontinued Medications Medication Drug Class(es) Dates Sig (Normalized) Sig (Original) acyclovir 0.05 mg/mg topical ointment (20 sources) Herpesvirus Nucleoside Analog DNA Polymerase Inhibitor, Herpes Simplex Virus Nucleoside Analog DNA Polymerase Inhibitor, Herpes Zoster Virus Nucleoside Analog DNA Polymerase Inhibitor Start: 04-12-2021 acyclovir (ZOVIRAX) 5 % ointment Apply to affected area five times daily. for 5 days as needed 15 g 1 04/12/2021 Active Problems Active Problems Problem Classification Problem Date Documented Da te Episodic/Chronic Anxiety disorders (20 sources) Anxiety; Translations: [Other specified anxiety disorders] Onset: 03-19-2017 03-19-2017 Chronic Cardiac and circulatory congenital anomalies (20 sources) Patent foramen ovale; Translations: [Atrial septal defect] Onset: 09-23-2018 09-23-2018 Chronic Disorders of lipid metabolism (20 sources) Dyslipidemia; Translations: [Hyperlipidemia, unspecified] Onset: 11-14-2012 Chronic Headache; including migraine (20 sources) Migraine; Translations: [Migraine without aura, not intractable, without status migrainosus] Onset: 11-13-2012 11-13-2012 Chronic Immunity disorders (6 sources) Pulmonary sarcoidosis; Translations: [Sarcoidosis of lung] Onset: 10-15-2022 10-15-2022 Chronic Immunizations and screening for infectious disease (2 sources) Requires vaccination; Translations: [Encounter for immunization] Episodic Menopausal disorders (1 source) Atrophic vaginitis; Translations: [Postmenopausal atrophic vaginitis] 02-12-2023 Chronic Nutritional deficiencies (20 sources) Vitamin D deficiency; Translations: [Vitamin D deficiency, unspecified] Onset: 03-19-2017 Chronic Osteoporosis (20 sources) Osteoporosis; Translations: [Other osteoporosis without current pathological fracture] Onset: 02-27-2017 Chronic Other and ill-defined heart disease (20 sources) Diastolic dysfunction; Translations: [Other ill-defined heart diseases] Onset: 06-15-2019 Chronic Other and ill-defined heart disease (1 source) Other ill-defined heart diseases; Translations: [Grade II diastolic dysfunction] Onset: 10-18-2020 Chronic Other bone disease and musculoskeletal deformities (4 sources) Somatic dysfunction of rib; Translations: [Segmental and somatic dysfunction of rib cage] Onset: 04-26-2023 04-26-2023 Episodic Other bone disease and musculoskeletal deformities (4 sources) Somatic dysfunction of thoracic region; Translations: [Segmental and somatic dysfunction of thoracic region] Onset: 04-26-2023 04-26-2023 Episodic Other ear and sense organ disorders (2 sources) Acute otitis externa of right ear; Translations: [Unspecified acute noninfective otitis externa, right ear] 01-04-2023 Episodic Other hereditary and degenerative nervous system conditions (20 sources) Resting tremor; Translations: [Other specified forms of tremor] Onset: 09-23-2018 09-23-2018 Chronic Other injuries and conditions due to external causes (1 source) Injury of left leg; Translations: [Unspecified injury of left lower leg, initial encounter] Episodic Other lower respiratory disease (20 sources) Interstitial lung disease; Translations: [Interstitial pulmonary disease, unspecified] Onset: 09-23-2018 Chronic Other nervous system disorders (4 sources) Tremor; Translations: [Tremor, unspecified] Onset: 03-25-2023 03-25-2023 Episodic Other upper respiratory infections (4 sources) Chronic sinusitis; Translations: [Chronic sinusitis, unspecified] Onset: 01-04-2023 Chronic Systemic lupus erythematosus and connective tissue disorders (20 sources) Connective tissue disease overlap syndrome; Translations: [Other overlap syndromes] Onset: 09-19-2022 09-19-2022 Chronic Thyroid disorders (20 sources) Acquired hypothyroidism; Translations: [Hypothyroidism, unspecified] Onset: 06-29-2013 Chronic Unclassified (1 source) PFO (patent foramen ovale); Translations: [PFO (patent foramen ovale)] Onset: 09-23-2018 Unclassified (1 source) Worsening headaches; Translations: [Worsening headaches] Onset: 12-16-2021 Past or Other Problems Problem Classification Problem Date Documented Date Episodic/Chronic Administrative/social admission (20 sources) Bereavement; Translations: [Disappearance and of family member] Onset: 09-23-2018 09-23-2018 Episodic Blindness and vision defects (20 sources) Eye / vision finding; Translations: [Unspecified visual disturbance] Onset: 12-16-2021 Episodic Chronic obstructive pulmonary disease and bronchiectasis (1 source) Bronchitis, not specified as acute or chronic; Translations: [Sinobronchitis] Onset: 01-04-2023 Episodic Conditions associated with dizziness or vertigo (20 sources) Dizziness; Translations: [Dizziness and giddiness] Onset: 09-04-2013 Episodic Diabetes mellitus without complication (20 sources) Hyperglycemia; Translations: [Hyperglycemia, unspecified] Onset: 10-18-2020 10-18-2020 Episodic Genitourinary symptoms and ill-defined conditions (2 sources) Increased frequency of urination; Translations: [Frequency of micturition] Onset: 01-15-2023 01-15-2023 Episodic Headache; including migraine (20 sources) Pain in face; Translations: [Left facial pain] Onset: 06-15-2019 06-15-2019 Episodic Malaise and fatigue (20 sources) Malaise and fatigue; Translations: [Other malaise] Onset: 09-04-2013 09-04-2013 Episodic Nausea and vomiting (20 sources) Nausea; Translations: [Nausea] Onset: 12-16-2021 Episodic Other and unspecified benign neoplasm (20 sources) Dysplastic nevus of trunk; Translations: [Melanocytic nevi of trunk] Onset: 03-25-2018 03-25-2018 Episodic Other ear and sense organ disorders (20 sources) Tinnitus of left ear; Translations: [Tinnitus, left ear] Onset: 03-19-2017 03-19-2017 Episodic Other ear and sense organ disorders (1 source) Unspecified acute noninfective otitis externa, right ear; Translations: [Acute otitis externa of right ear, unspecified type] Onset: 01-04-2023 Episodic Other hematologic conditions (20 sources) Red blood cell finding; Translations: [Other abnormality of red blood cells] Onset: 09-19-2021 Episodic Other hematologic conditions (20 sources) Erythrocytosis; Translations: [Secondary polycythemia] Onset: 08-24-2013 05-17-2021 Episodic Other injuries and conditions due to external causes (1 source) Unspecified injury of left lower leg, initial encounter; Translations: [Leg injury, left, initial encounter] Onset: 03-29-2023 Episodic Other lower respiratory disease (20 sources) Restrictive lung disease; Translations: [Other disorders of lung] Onset: 03-19-2017 03-19-2017 Episodic Other lower respiratory disease (20 sources) Rib pain; Translations: [Pleurodynia] Onset: 10-18-2020 10-18-2020 Episodic Other nervous system disorders (20 sources) Impairment of balance; Translations: [Other abnormalities of gait and mobility] Onset: 12-16-2021 Episodic Other nervous system disorders (13 sources) Intermittent tremor; Translations: [Tremor, unspecified] Onset: 01-26-2023 01-26-2023 Episodic Other nervous system disorders (1 source) Tremor, unspecified; Translations: [Occasional tremors] Onset: 01-26-2023 Episodic Other screening for suspected conditions (not mental disorders or infectious disease) (20 sources) Patient encounter status; Translations: [Encounter for other screening for malignant neoplasm of breast] Onset: 11-14-2012 11-14-2012 Episodic Results Test Name Value Interpretation Reference Range Facil ity Vital Signs Date Time Vital Sign Value Performing Clinician Rain [email or web address] 02-12-2023 11:18-0500 Body weight 58.06 kg Donna Jules MD Work Phone: [facility] 02-12-2023 11:18-0500 Diastolic blood pressure 60 mm[Hg] Donna Jules MD Work Phone: [facility] 02-12-2023 11:18-0500 Systolic blood pressure 104 mm[Hg] Donna Jules MD Work Phone: [facility] 01-25-2023 15:29-0400 Body temperature 97.81 [degF] Raul Boyer DO Work Phone: [facility] 01-25-2023 15:29-0400 Body weight 58.06 kg Raul Boyer DO Work Phone: [facility] 01-25-2023 15:29-0400 Diastolic blood pressure 72 mm[Hg] Raul Boyer DO Work Phone: [facility] 01-25-2023 15:29-0400 Heart rate 60 /min Raul Boyer DO Work Phone: [facility] 01-25-2023 15:29-0400 Respiratory rate 16 /min Raul Boyer DO Work Phone: [facility] 01-25-2023 15:29-0400 Systolic blood pressure 120 mm[Hg] Raul Boyer DO Work Phone: [facility] 01-04-2023 10:11-0400 Body weight 58.88 kg Naheed Thayer [employer] ASSEMBLER.HOTEL ASSISTANT MANAGER Work Phone: [facility] 01-04-2023 10:11-0400 Diastolic blood pressure 64 mm[Hg] Naheed Thayer [employer] ASSEMBLER.HOTEL ASSISTANT MANAGER Work Phone: [facility] 01-04-2023 10:11-0400 Heart rate 60 /min Naheed Thayer [employer] ASSEMBLER.HOTEL ASSISTANT MANAGER Work Phone: [facility] 01-04-2023 10:11-0400 Respiratory rate 12 /min Naheed Thayer [employer] ASSEMBLER.HOTEL ASSISTANT MANAGER Work Phone: [facility] 01-04-2023 10:11-0400 Systolic blood pressure 118 mm[Hg] Naheed Thayer [employer] ASSEMBLER.HOTEL ASSISTANT MANAGER Work Phone: [facility] 12-28-2022 07:21-0400 Body weight 58.7 kg Naheed Thayer [employer] ASSEMBLER.HOTEL ASSISTANT MANAGER Work Phone: [facility] 12-28-2022 07:21-0400 Diastolic blood pressure 62 mm[Hg] Naheed Thayer [employer] ASSEMBLER.HOTEL ASSISTANT MANAGER Work Phone: [facility] 12-28-2022 07:21-0400 Heart rate 60 /min Naheed Thayer [employer] ASSEMBLER.HOTEL ASSISTANT MANAGER Work Phone: [facility] 12-28-2022 07:21-0400 Respiratory rate 14 /min Naheed Thayer [employer] ASSEMBLER.HOTEL ASSISTANT MANAGER Work Phone: [facility] 12-28-2022 07:21-0400 SaO2% (BldA) [Mass fraction] 100 % Naheed Thayer [employer] ASSEMBLER.HOTEL ASSISTANT MANAGER Work Phone: [facility] 12-28-2022 07:21-0400 Systolic blood pressure 110 mm[Hg] Naheed Thayer [employer] ASSEMBLER.HOTEL ASSISTANT MANAGER Work Phone: [facility] 06-30-2022 13:35-0400 Body temperature 98.2 [degF] Sumaya Athy PA-C Work Phone: [facility] 06-30-2022 13:35-0400 Body weight 58.06 kg Sumaya Athy PA-C Work Phone: [facility] 06-30-2022 13:35-0400 Diastolic blood pressure 64 mm[Hg] Sumaya Athy PA-C Work Phone: [facility] 06-30-2022 13:35-0400 Heart rate 76 /min Sumaya Athy PA-C Work Phone: [facility] 06-30-2022 13:35-0400 Respiratory rate 16 /min Sumaya Athy PA-C Work Phone: [facility] 06-30-2022 13:35-0400 SaO2% (BldA) [Mass fraction] 98 % Sumaya Athy PA-C Work Phone: [facility] 06-30-2022 13:35-0400 Systolic blood pressure 110 mm[Hg] Sumaya Athy PA-C Work Phone: [facility] 04-27-2022 07:51-0500 Body temperature 97.81 [degF] Nawaf Sanon [employer] ASSEMBLER.HOTEL ASSISTANT MANAGER Work Phone: [facility] 04-27-2022 07:51-0500 Body weight 57.88 kg Nawaf Saonn [employer] ASSEMBLER.HOTEL ASSISTANT MANAGER Work Phone: [facility] 04-27-2022 07:51-0500 Diastolic blood pressure 78 mm[Hg] Nawaf Sanon [employer] ASSEMBLER.HOTEL ASSISTANT MANAGER Work Phone: [facility] 04-27-2022 07:51-0500 Heart rate 70 /min Nawaf Sanon [employer] ASSEMBLER.HOTEL ASSISTANT MANAGER Work Phone: [facility] 04-27-2022 07:51-0500 Respiratory rate 18 /min Nawaf Fab [employer] ASSEMBLER.HOTEL ASSISTANT MANAGER Work Phone: [facility] 04-27-2022 07:51-0500 SaO2% (BldA) [Mass fraction] 98 % Nawaf Sanon [employer] ASSEMBLER.HOTEL ASSISTANT MANAGER Work Phone: [facility] 04-27-2022 07:51-0500 Systolic blood pressure 126 mm[Hg] Nawaf Fab [employer] ASSEMBLER.HOTEL ASSISTANT MANAGER Work Phone: [facility] 03-21-2022 08:10-0500 Body temperature 97.81 [degF] Raul Boyer DO Work Phone: [facility] 03-21-2022 08:10-0500 Body weight 56.7 kg Raul Boyer DO Work Phone: [facility] 03-21-2022 08:10-0500 Diastolic blood pressure 80 mm[Hg] Raul Boyer DO Work Phone: [facility] 03-21-2022 08:10-0500 Heart rate 64 /min Raul Boyer DO Work Phone: [facility] 03-21-2022 08:10-0500 Respiratory rate 12 /min Raul Boyer DO Work Phone: [facility] 03-21-2022 08:10-0500 Systolic blood pressure 120 mm[Hg] Raul Boyer DO Work Phone: [facility] 02-05-2022 14:23-0400 Body height 163.1 cm Donna Jules MD Work Phone: [facility] 02-05-2022 14:23-0400 Body weight 56.25 kg Donna Jules MD Work Phone: [facility] 02-05-2022 14:23-0400 Diastolic blood pressure 60 mm[Hg] Donna Jules MD Work Phone: [facility] 02-05-2022 14:23-0400 Systolic blood pressure 102 mm[Hg] Donna Jules MD Work Phone: [facility] 12-15-2021 10:19-0400 Body temperature 97 [degF] Raul Boyer DO Work Phone: [facility] 12-15-2021 10:19-0400 Body weight 56.25 kg Raul Boyer DO Work Phone: [facility] 12-15-2021 10:19-0400 Diastolic blood pressure 60 mm[Hg] Raul Boyer DO Work Phone: [facility] 12-15-2021 10:19-0400 Heart rate 60 /min Raul Boyer DO Work Phone: [facility] 12-15-2021 10:19-0400 Respiratory rate 16 /min Raul Boyer DO Work Phone: [facility] 12-15-2021 10:19-0400 Systolic blood pressure 110 mm[Hg] Raul Boyer DO Work Phone: [facility] 09-19-2021 08:58-0400 Body height 163 cm Raul Boyer DO Work Phone: [facility] 09-19-2021 08:58-0400 Body temperature 97.2 [degF] Raul Boyer DO Work Phone: [facility] 09-19-2021 08:58-0400 Body weight 57.15 kg Raul Boyer DO Work Phone: [facility] 09-19-2021 08:58-0400 Diastolic blood pressure 60 mm[Hg] Raul Boyer DO Work Phone: [facility] 09-19-2021 08:58-0400 Heart rate 64 /min Raul Boyer DO Work Phone: [facility] 09-19-2021 08:58-0400 Respiratory rate 12 /min Raul Boyer DO Work Phone: [facility] 09-19-2021 08:58-0400 Systolic blood pressure 110 mm[Hg] Raul Boyer DO Work Phone: [facility] Encounters Encounter Date Encounter Type Care Provider Facility Start: 05-15-2023 Documentation procedure Mammog ignacio Coordinator [facility] Start: 05-15-2023 Letter encounter Mammography Coordinator [facility] Department Start: 05-15-2023 End: 05-15-2023 ambulatory RUAL BOYER Facility:[facility] Start: 05-15-2023 End: 05-15-2023 Subsequent hospital visit by physician Screen Mammo [facility] W[facility] Mammogram Procedures Date Procedure Procedure Detail Performing Clinician Start: 05-15-2023 Screening digital br east tomosynthesis bi Donna Jules MD Work Phone: Start: 05-13-2023 Echo transthorac r-t 2d w/wo m-mode rec comp Raul Aguillonon DO Work Phone: Start: 05-13-2023 LVEF ECHO WITH AGITA REMEDIOS SALINE CONTRAST Raul Gibsonrison DO Work Phone: Start: 03-18-2023 Lipid 1996 panel - S tiffany or Plasma Echocardiogram Wstr Work Phone: Start: 10-15-2022 Ct thorax w/o contra st material Raul Gibsonrison DO Work Phone: Start: 10-15-2022 Dxa bone density kulwant dy 1/> sites axial skel Raul Gibsonrison DO Work Phone: Start: 09-13-2022 Lipid 1996 panel - S tiffany or Plasma Naheed Thayer [employer] ASSEMBLER.HOTEL ASSISTANT MANAGER Work Phone: Start: 05-14-2022 IZABELLA SCREENING W BETH Re dayna Jules MD Work Phone: Start: 05-14-2022 Mammography Sumaya Peacock PA-C Work Phone: Start: 01-02-2022 Mri brain brain stem w/o contrast material Raul Aguillonon DO Work Phone: Start: 09-19-2021 Adult depression screening assessment Raul Gibsonrison DO Work Phone: Start: 06-22-2021 Colonoscopy Donna ricks MD Work Phone: Start: 05-12-2021 Mammography Raul Gibson risnidhi DO Work Phone: Start: 05-16-2016 Colonoscopy Raul jose DO Work Phone: Plan of Treatment Date Care Activity Detail Author Start: 03-18-2028 Lipid panel Lipid Screening [facility] Start: 09-14-2027 Lipid 1996 panel - S tiffany or Plasma Lipid Screening [facility] Start: 03-21-2027 LIPID SCREEN LIPID SCREEN [facility] Start: 09-18-2026 LIPID SCREEN LIPID SCREEN [facility] Start: 06-22-2026 Colonoscopy COLONOSCOPY [facility] Start: 06-22-2026 COLORECTAL CANCER SCREENING COLORECTAL CANCER SCREENING [facility] Start: 06-22-2026 Screening for malign ant neoplasm of colon [facility] Start: 03-18-2026 Diabetes Screening Diabetes Screenin g [facility] Start: 09-13-2025 Diabetes Screening Diabetes Screenin g [facility] Start: 03-21-2025 DIABETES SCREEN DIABETES SCREEN [facility] Start: 12-15-2024 DIABETES SCREEN DIABETES SCREEN [facility] Start: 09-18-2024 DIABETES SCREEN DIABETES SCREEN [facility] Start: 05-15-2024 Screening for malign ant neoplasm of breast Mammogram Screening [facility] Start: 04-26-2024 Annual PCP Team Curriculum Facilitator bradly Disease Visit Annual PCP Team Chronic Disease Visit [facility] Start: 01-26-2024 Annual PCP Team Curriculum Facilitator bradly Disease Visit Annual PCP Team Chronic Disease Visit [facility] Start: 01-11-2024 Annual PCP Team Curriculum Facilitator bradly Disease Visit Annual PCP Team Chronic Disease Visit [facility] Start: 01-05-2024 Annual PCP Team Curriculum Facilitator bradly Disease Visit Annual PCP Team Chronic Disease Visit [facility] Start: 12-29-2023 Annual PCP Team Curriculum Facilitator bradly Disease Visit Annual PCP Team Chronic Disease Visit [facility] Start: 12-29-2023 Covid-19 Vaccine ( season) Covid-19 Vaccine ( season) [facility] Immunizations Immunization Date Immunization Notes Care Provider Vika trinh 09-19-2021 pneumococcal (PCV20) vaccine, 20 valent (PREVNAR 20) Raul Boyer DO Work Phone: [facility] Work Phone: 09-19-2021 pneumococcal Conjuga te, unspecified formulation Raul Boyer DO Work Phone: [facility] Work Phone: 01-19-2021 COVID-19 vaccine, ag e 12+ yr (PFIZER-BIONTECH - PURPLE TOP) Raul Boyer DO Work Phone: [facility] 07-02-2020 COVID-19 vaccine, ag e 12+ yr (PFIZER-BIONTECH - PURPLE TOP) Raul Boyer DO Work Phone: [facility] 06-11-2020 COVID-19 vaccine, ag e 12+ yr (PFIZER-BIONTECH - PURPLE TOP) Raul Boyer DO Work Phone: [facility] 03-25-2018 influenza virus vaccine, unspecified formulation Naheed Thayer APRN.HOTEL ASSISTANT MANAGER Work Phone: [facility] Payers Date Payer Category Payer Private Health Insurance [id number] 2021 Medicare MEDICARE MEDICAR E A AND B [id number] 2021-Present [phone] [place] [address] Medicare [id number] 2021 Medicare [id number] 2021 Unknown [employer] [place] [employer] [place] MEDICARE SUPPLEMENT [id number] 2021-Present [phone] [id number] [employer] [place] [address] Indemnity [id number] 2021 Unknown [employer] [place] [employer] [place] MEDICARE SUPPLEMENT [id number] 2021-Present [phone] [id number] [employer] [place] [address] Indemnity [id number] Social History Date Type Detail Facility Start: 04-19-2016 End: 02-05-2022 Tobacco smoking status NHIS Ex-smoker [facility] Work Phone: End: 04-08-1980 History of tobacco use Current smoker [facility] End: 04-08-1980 History of tobacco use Cigarette Smoker [facility] Start: 09-19-2021 End: 09-19-2022 Alcohol intake Current drinker of alcohol (finding) [facility] Start: 12-16-2019 End: 03-17-2022 History SDOH Alcohol Frequency 1 [facility] Start: 10-14-2019 End: 12-16-2019 History SDOH Alcohol Std Drinks 98 [facility] Start: 10-14-2019 End: 03-17-2022 History SDOH Social Connections Phone 5 [facility] Start: 10-14-2019 End: 03-17-2022 History SDOH Social Connections Get [facility] 4 [facility] [facility] Start: 10-14-2019 End: 03-17-2022 History SDOH Social Connections Tenriism 2 [facility] Start: 10-14-2019 Education 16 [facility] Start: 04-06-2016 End: 02-05-2022 Tobacco Comment 1/2ppd on weekends, socially [facility] Start: 1955 Sex Assigned At Female [facility] Start: 09-08-2021 End: 02-05-2022 Exposure to SARS-CoV-2 (event) Not sure [facility] Start: 04-19-2016 End: 02-05-2022 Tobacco use and exposure Smokeless tobacco non-user [facility] Start: 03-17-2022 History SDOH Alcohol Std Drinks 0 [facility] Start: 03-17-2022 History SDOH Physical Activity MPS 3 [facility] Start: 03-17-2022 End: 09-19-2022 History of Social function [facility] Start: 03-17-2022 End: 09-19-2022 Social connection and isolation panel [facility] Do you belong to any clubs or organizations such as taoist groups, unions, fraternal or athletic groups, or school groups? No [facility] Are you now , , , , never or living with a partner? [facility] How often to you hav e a drink containing alcohol? Never [facility] How many standard dr inks containing alcohol do you have on a typical day? Patient does not drink [facility] How hard is it for y ou to pay for the very basics like food, housing, medical care, and heating Not very hard [facility] Do you feel stress - tense, restless, nervous, or anxious, or unable to sleep at night because your mind is troubled all the time - these days [OSQ] Not at all [facility] (I/We) worried wheth er (my/our) food would run out before (I/we) got money to buy more. Never true [facility] Start: 12-03-2018 Gender identity Identifies as female gender (finding) [facility] Start: 12-03-2018 Sexual orientation Heterosexual (finding) [facility] Start: 02-12-2023 End: 04-15-2023 Alcohol intake Ex-drinker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 Patient education as noted. Self-Mcc Management: 1: discussed that pt. may move her head normally, try to avoid moving en bloc with the trunk to avoid headmovement. Pt. demonstrates normal function of the VOR and no balance concerns this visit. 2: discussed that it is possible that headaches and neck stiffness could be attributed to pt. avoiding head movement, she demosntrates much tension in the cervical spine when asked to move the head today, this improves with repeated movement without vertigo symptom reproduction today Skilled Intervention: Skilled judgment in the selection of proper modification for activity of daily living/home management based on clinical presentation, deficits, and needs. Reviewed patient specific diagnosis in relation to activities of daily living/home management. Activity progression based on professional judgement. Correct performance of home program was facilitated with verbal, visual, and tactile cueing. Billing Neuromuscular Re-Education Treatment Minutes: 35 Self-Care/Home Management Treatment Minutes: 5 Skilled Treatment Time Minutes (timed and untimed codes): 40 Total Session Time (minutes): 40 Session Start Time : 1027 Session Stop Time : 1107 Kyung Paz PT documented in this encounter [facility] 02-26-2023 Note HNO ID: [id number] Author: Kyung Paz PT Service: ? Author Type: Physical Therapist Type: Progress Notes Filed: 02/26/2023 11:15 AM Note Text: Episode Visit Count: 6 Therapist That Will Accept/Oversee The Plan Of Care: Kyung Paz Start of Care Date: 01/25/23 Onset Date: 11/25/22 Plan of Care Certification Date: 02/26/23 Next Certification Due Date: 04/02/23 REHABILITATION AND SPORTS THERAPY PHYSICAL THERAPY PROGRESS REPORT PLAN OF CARE UPDATE: Assessment: Candace Arroyo demonstrates improvements in walking and bending. She has progressed toward goals. Patient continues to present with impairments in overall function, patient reported outcome measures, symptom management, and rupal hallpike positional change that interfere with bed mobility, bending, walking . Current prognosis is Fair due to: chronic nature of impairments, clinical presentation, poor understanding of deficits . She will benefit from continued skilled therapy services to meet the updated goals for this plan of care as noted below. Goals for Episode of Care: created on 01/25/23 through 03/08/23 Goals updated on 02/26/2023 through 04/02/23 Patient will be able to correct postural deviations independently in order to allow for normal mechanics, to decrease current pain and prevent future Recurrence. -- PROGRESSING Patient will have negative positional testing for BPPV. -- PROGRESSING Patient will be independent with home exercise program and progression. Patient will return to prior level of function with all activities of daily living with trace reports of dizziness. -- PROGRESSING Patient will deny dizziness with rolling right, rolling left, lying down, supine to sit, bending, turning , and walking. -- PROGRESSING Patient Goals: resolve dizziness with transitional movements and head Movement -- PROGRESSING Patient Goals: resolve dizziness with transitional movements and head movement Planned Interventions, Frequency, and Duration: 1x/week, 5 weeks Total Number of Visits Planned: 5 Patient to be seen for Self-assisted management (10944), Therapeutic activities (24554), Manual therapy (30821), Gait Training (90592), Therapeutic exercise (70451), Neuromuscular re-education (73371), Canalith Repositioning Maneuvers (19204) PLAN FOR NEXT VISIT: assess symptom response to CRM. Pt. is authorized 2x more visits. pt. to cx the visit for next week if symptoms have improved. R/S if symptoms return. Balance training next visit. SUBJECTIVE: It's still a whirly whirl when I get up in the morning. I havent' gotten the big spins since I first seen you and the ENT. My anxiety is so bad in the morning because I think it's going to happen. It doesn't last very long. She reports she feels like shes on the boat not all day, but part of the day. Only has symptoms with getting up in the morning and upon standing. Pt. says it's better than it was in the beginning, but it's not gone. Pt. reports about 2 days of no vertigo following last CRM manuever before symptoms onset again. Pt. says that shes feeling very anxious and wonders how much of her symptoms are associated with anxiety.. Patient Goals: resolve dizziness with transitional movements and head movement Functional Limitations: bed mobility, bending, walking Vestibular Description: vertigo Frequency: Intermittent (shaking, feels like shes on a boat.) Symptoms worsened by: lying down, bending, turning head quickly, rolling right, rolling left Headache: Yes Description: (throbbing) Rating of current symptoms: 2/10 Location: eyes and temporomandibular region Frequency: Constant Pain: Pain Pain Location: (Pt. states she feels shaking upon entering PT clinic. She just noticed. PT observes pt. whole body shaking.) Post Treatment Pain Post Treatment Symptoms: pt. states I just feel shaky. No change in headache. Shakiness resolved before pt. left clinic. Sit > stand without vertigo and normal gait observed. PROMIS Scales Higher is Better 01/25/2023 Phys Func - Score 48 (within normal limits) Phys Func - Percentile 42 % Self-Eff Symptom - Score 46 (Average) Self-Eff Symptom - Percentile 34 % T-scores: mean of general population = 50. 5 points is clinically meaningfully difference Percentiles provide an indication of how the patient's score ranks in relation to the general population. Higher percentile rankings indicate better function/quality of life. 50th percentile is the average of the general population and indicates half of respondents had a worse score. OBJECTIVE MEASURES WITH LEVEL OF FUNCTION: Oculomotor Testing Fixation Removed Spontaneous Nystagmus: No nystagmus Gaze Evoked Nystagmus: Not present Positional Testing Right Rupal-Hallpike: Symptomatic, Less than 60 seconds, Without delay, Comments Right [place]-Halpike Comments: pt. quickly sits up and attempts to jump off the table, No nystagmus observe (more content not included)... [facility] 02-26-2023 History of Present illness Narrative Episode Visit Count: 6 Therapist That Will Accept/Oversee The Plan Of Care: Kyung Paz Start of Care Date: 01/25/23 Onset Date: 11/25/22 Plan of Care Certification Date: 02/26/23 Next Certification Due Date: 04/02/23 REHABILITATION AND SPORTS THERAPY PHYSICAL THERAPY PROGRESS REPORT PLAN OF CARE UPDATE: Assessment: Candace Arroyo demonstrates improvements in walking and bending. She has progressed toward goals. Patient continues to present with impairments in overall function, patient reported outcome measures, symptom management, and rupal hallpike positional change that interfere with bed mobility, bending, walking . Current prognosis is Fair due to: chronic nature of impairments, clinical presentation, poor understanding of deficits . She will benefit from continued skilled therapy services to meet the updated goals for this plan of care as noted below. Goals for Episode of Care: created on 01/25/23 through 03/08/23 Goals updated on 02/26/2023 through 04/02/23 Patient will be able to correct postural deviations independently in order to allow for normal mechanics, to decrease current pain and prevent future Recurrence. -- PROGRESSING Patient will have negative positional testing for BPPV. -- PROGRESSING Patient will be independent with home exercise program and progression. Patient will return to prior level of function with all activities of daily living with trace reports of dizziness. -- PROGRESSING Patient will deny dizziness with rolling right, rolling left, lying down, supine to sit, bending, turning , and walking. -- PROGRESSING Patient Goals: resolve dizziness with transitional movements and head Movement -- PROGRESSING Patient Goals: resolve dizziness with transitional movements and head movement Planned Interventions, Frequency, and Duration: 1x/week, 5 weeks Total Number of Visits Planned: 5 Patient to be seen for Self-assisted management (60531), Therapeutic activities (07953), Manual therapy (39339), Gait Training (99914), Therapeutic exercise (52652), Neuromuscular re-education (24861), Canalith Repositioning Maneuvers (03437) PLAN FOR NEXT VISIT: assess symptom response to CRM. Pt. is authorized 2x more visits. pt. to cx the visit for next week if symptoms have improved. R/S if symptoms return. Balance training next visit. SUBJECTIVE: It's still a whirly whirl when I get up in the morning. I havent' gotten the big spins since I first seen you and the ENT. My anxiety is so bad in the morning because I think it's going to happen. It doesn't last very long. She reports she feels like shes on the boat not all day, but part of the day. Only has symptoms with getting up in the morning and upon standing. Pt. says it's better than it was in the beginning, but it's not gone. Pt. reports about 2 days of no vertigo following last CRM manuever before symptoms onset again. Pt. says that shes feeling very anxious and wonders how much of her symptoms are associated with anxiety.. Patient Goals: resolve dizziness with transitional movements and head movement Functional Limitations: bed mobility, bending, walking Vestibular Description: vertigo Frequency: Intermittent (shaking, feels like shes on a boat.) Symptoms worsened by: lying down, bending, turning head quickly, rolling right, rolling left Headache: Yes Description: (throbbing) Rating of current symptoms: 2/10 Location: eyes and temporomandibular region Frequency: Constant Pain: Pain Pain Location: (Pt. states she feels shaking upon entering PT clinic. She just noticed. PT observes pt. whole body shaking.) Post Treatment Pain Post Treatment Symptoms: pt. states I just feel shaky. No change in headache. Shakiness resolved before pt. left clinic. Sit > stand without vertigo and normal gait observed. PROMIS Scales Higher is Better 01/25/2023 Phys Func - Score 48 (within normal limits) Phys Func - Percentile 42 % Self-Eff Symptom - Score 46 (Average) Self-Eff Symptom - Percentile 34 % T-scores: mean of general population = 50. 5 points is clinically meaningfully difference Percentiles provide an indication of how the patient's score ranks in relation to the general population. Higher percentile rankings indicate better function/quality of life. 50th percentile is the average of the general population and indicates half of respondents had a worse score. OBJECTIVE MEASURES WITH LEVEL OF FUNCTION: Oculomotor Testing Fixation Removed Spontaneous Nystagmus: No nystagmus Gaze Evoked Nystagmus: Not present Positional Testing Right [place]-Hallpike: Symptomatic, Less than 60 seconds, Without delay, Comments Right [place]-Halpike Comments: pt. quickly sits up and attempts to jump off the table, No nystagmus observed but PT assisted pt. to avoid falling. Pt. does not confirm or deny vertigo. Pt. very shaky. Left Rupal-Hallpike: Symptomatic, Less than 60 seconds, With delay, Left Torsional / Counterclockwise, Upbeat, Comments (fixation lights on and nystagmus intensity reduced suggesting peripheral vestibular involvement) TREATMENT: Neuromuscular Re-Education: 1: R and L ear down 2: L and R rupal hallpike 3: fixation removed oculomotor testing Skilled Intervention: Skilled judgment used to assess appropriate program for balance and coordination activity. Education in proprioceptive/kinesthetic awareness during positional testing. Ensured patient safety with use of PT guarding during CRM. Patient education as noted. Self-Mcc Management: 1: at length, discussed how migraine and anxiety can present similar symptoms as BPPV 2: dicussed why PT chose to treat the L ear as opposed to the right. Objectively, pt. had nystagmus with the L rupal hallpike but not the right -- although pt. reports being more symptomatic on this side Skilled Intervention: Skilled judgment in the selection of proper modification for activity of daily living/home management based on clinical presentation, deficits, and needs. Physical assistance was provided during education for modifications and patient safety. Reviewed patient specific diagnosis in relation to activities of daily living/home management. Activity progression based on professional judgement. Reviewed and educated patient on additions/changes for home program as noted above with an (*). Canalith Repositionin: CRM for L posterior canalithiasis BPPV lazaro Skilled Intervention: Professional judgment was used to determine specific treatment interventions based on assessment of symptoms. Physically assisted patient through each step of repositioning. Verbal and tactile cues provided to patient to assist in moving between each position of maneuver in correct sequence. Patient education including handouts provided regarding self repostitioning techniques to be performed at home. Crowing Neuromuscular Re-Education Treatment Minutes: 10 Self-Care/Home Management Treatment Minutes: 15 * Canalith Repositionin unit Skilled Treatment Time Minutes (timed and untimed codes): 40 Total Session Time (minutes): 40 Session Start Time : 1020 Session Stop Time : 1100 Kyung Paz PT documented in this encounter [facility] 02-19-2023 Note HNO ID: [id number] Author: Kyung Paz PT Service: ? Author Type: Physical Therapist Type: Progress Notes Filed: 02/19/2023 11:07 AM Note Text: Episode Visit Count: 5 Therapist That Will Accept/Oversee The Plan Of Care: Kyung Paz Start of Care Date: 01/25/23 Onset Date: 11/25/22 Plan of Care Certification Date: 01/25/23 Next Certification Due Date: 03/01/23 REHABILITATION AND SPORTS THERAPY PHYSICAL THERAPY TREATMENT NOTE ASSESSMENT: Candace Arroyo tolerated the session with increased symptoms. She demonstrated up beating clockwise nystagmus with L dixhallpike and L side lying test. Liberatory maneuver for L posterior canalithiasis was performed today. Consistently pt. Reports improved symptoms the day following maneuvers, but continues to return with positive testing for left posterior canalithiasis. The patient will continue to benefit from ongoing skilled physical therapy to progress toward set goals. PLAN FOR NEXT VISIT: PN, assess symptom response to liberatory manuever for L posterior canalithiasis SUBJECTIVE: The day after I saw you, it was really good. She had a head ache throughout the week with dizziness last week. She had no symptoms gardening outdoors. She does get vertigo with less intensity than prior with quickly sitting up and upon sitting up in bed in the morning. Vestibular Description: vertigo Rating of current symptoms: 0/10 Frequency: Intermittent Pain: OBJECTIVE MEASURES WITH LEVEL OF FUNCTION: Positional Testing Left [place]-Hallpike: Symptomatic, Less than 60 seconds, With delay, Left Torsional / Counterclockwise, Upbeat Positional Test Comments: L side lying test: Symptomatic;Less than 60 seconds;With delay;Left Torsional / Counterclockwise;Upbeat; TREATMENT: Neuromuscular Re-Education: 1: L rupal hallpike 1x 2: L side lying test for left posterior canalithiasis 1x Skilled Intervention: Skilled judgment used to assess appropriate program for balance and coordination activity. Patient education as noted. Self-Mcc Management: 1: *liberatory manuever for home if pt. should become very symptomatic again with bed mobility -- only to be performed if symtpoms return. 2: *encouraged normal movement patterns. Skilled Intervention: Skilled judgment in the selection of proper modification for activity of daily living/home management based on clinical presentation, deficits, and needs. Activity progression based on professional judgement. Provided written instruction for home program to facilitate proper performance and compliance. Canalith Repositionin: liberatory manuever CRM for L posterior canalithiasis BPPV lazaro, 2 min hold each position. Resolved symtpoms upon sitting. Skilled Intervention: Professional judgment was used to determine specific treatment interventions based on assessment of symptoms. Physically assisted patient through each step of repositioning. Verbal and tactile cues provided to patient to assist in moving between each position of maneuver in correct sequence. Patient education including handouts provided regarding self repostitioning techniques to be performed at home. Billing Neuromuscular Re-Education Treatment Minutes: 5 Self-Care/Home Management Treatment Minutes: 10 * Canalith Repositionin unit Skilled Treatment Time Minutes (timed and untimed codes): 30 Total Session Time (minutes): 30 Session Start Time : 1030 Session Stop Time : 1100 Kyung Paz PT [facility] 02-12-2023 Note HNO ID: [id number] Author: Kyung Paz PT Service: ? Author Type: Physical Therapist Type: Progress Notes Filed: 02/12/2023 2:12 PM Note Text: Episode Visit Count: 4 Therapist That Will Accept/Oversee The Plan Of Care: Kyung Paz Start of Care Date: 01/25/23 Onset Date: 11/25/22 Plan of Care Certification Date: 01/25/23 Next Certification Due Date: 03/01/23 REHABILITATION AND SPORTS THERAPY PHYSICAL THERAPY TREATMENT NOTE ASSESSMENT: Candace Arroyo tolerated the session with increased symptoms. She demonstrated improvements in L rupal hallpike positional testing negative following CRM. Pt. Reported feeling 1/10 rocking at end of visit following CRM. Negative re-test of L rupal hallpike which did not reproduce vertigo or nystamgus. The patient will continue to benefit from ongoing skilled physical therapy to progress toward set goals. PLAN FOR NEXT VISIT: re-test L PC to determine if BPPV has returned SUBJECTIVE: Pt. reports nausea and dizziness that lasted all day following last visit. Pt. has not had any big spins. Pt. reports that the anxiety is somewhat better. Vestibular Description: vertigo, spinning (self) Rating of current symptoms: 0/10 Frequency: Intermittent Symptoms worsened by: lying down, bending, turning head quickly, rolling right, rolling left Pain: Post Treatment Pain Post Treatment Symptoms: 1/10 vertigo rocking, seated at rest OBJECTIVE MEASURES WITH LEVEL OF FUNCTION: Positional Testing Left Rupal-Hallpike: Symptomatic, Less than 60 seconds, With delay, Upbeat, Left Torsional / Counterclockwise TREATMENT: Therapeutic Exercise: Skilled Intervention: Patient was educated in proper exercise technique and purpose for exercises. Skilled judgment was used in selection of appropriate interventions. Educated patient on rationale for performing exercises in regards to including balance, increase ease of ADL, and ROM and function . Patient education as noted. Neuromuscular Re-Education: 1: R and L ear down 2x each 2: R and L rupal hallpike 2x each Skilled Intervention: Skilled judgment used to assess appropriate program for balance and coordination activity. Education in proprioceptive/kinesthetic awareness during positional testing. Gait Training: Distance (feet): 160 Gait Cues: posture, relax the shoulders to allow arm swing, cues to allow the head turn independent of the trunk rather than en bloc -- pt. able to correct with reassurance Assistive Device: none Assist Level: supervision Skilled Intervention: Patient was provided supervision during pre-gait/gait training to prevent falls and insure safety. Self-Mcc Management: 1: *dc repeated movements given as HEP previously 2: *discouraged disruptive behaviors including avoiding ADLs or sleeping in bed due to anticipation of vertigo 3: *at length discussed the cause of BPPV vertigo and that positional changes such as laying down and bending are coincidental. the movement itself does not cause her to be dizzy nor does preventing these movements reduce chances of BPPV occurance 4: *encouraged pt. to move as normal as possible. Discouraged trying to prevent reoccurance. While BPPV reoccurance is possible, pt. knows to move slowly and be still until symptoms pass until she can be seen for another manuever if needed Skilled Intervention: Skilled judgment in the selection of proper modification for activity of daily living/home management based on clinical presentation, deficits, and needs. Educated the patient regarding recommendations and provided written instruction to facilitate compliance. Activity progression based on professional judgement. Reviewed and educated patient on additions/changes for home program as noted above with an (*). Billing Neuromuscular Re-Education Treatment Minutes: 5 Self-Care/Home Management Treatment Minutes: 15 Gait Training Treatment Minutes: 5 * Canalith Repositionin unit Total Session Time (minutes): 40 Session Start Time : 1325 Session Stop Time : 1405 Kyung Paz PT [facility] 02-12-2023 Instructions Kyung Paz PT - 02/12/2023 2:12 PM EST Advance Directives Every adult has the right to direct their own medical care. Having an advance directive on file helps to ensure that you receive the care you want if a medical condition or injury renders you unable to make decisions or communicate. Forms can be found on the [facility] Advance Directives site. You do not need a senior network administrator to complete advance directive documents. [email or web address] Talking about end-of-life issues is difficult, but it truly is a gift to your loved ones. We suggest using The Conversation Project (theconversationproject.org) to help guide you through discussing and thinking about your wishes/preferences, goals and values and completing your advance directive. After you complete the documents, talk to those people who may be involved with your healthcare decision making, and give them a copy of your forms to make sure your wishes are followed. Please bring a copy of your advance directive documents to your next appointment, or email to as an attachment in either PDF, TIFF, or JPEG format. You can also mail to: [facility] Information Management, [employer] Directive Processing [id number] [place], [place] [id number] documented in this encounter [facility] 02-12-2023 History of Present illness Narrative Episode Visit Count: 4 Therapist That Will Accept/Oversee The Plan Of Care: Kyung Paz Start of Care Date: 01/25/23 Onset Date: 11/25/22 Plan of Care Certification Date: 01/25/23 Next Certification Due Date: 03/01/23 REHABILITATION AND SPORTS THERAPY PHYSICAL THERAPY TREATMENT NOTE ASSESSMENT: Candace Arroyo tolerated the session with increased symptoms. She demonstrated improvements in L rupal hallpike positional testing negative following CRM. Pt. Reported feeling 1/10 rocking at end of visit following CRM. Negative re-test of L rupal hallpike which did not reproduce vertigo or nystamgus. The patient will continue to benefit from ongoing skilled physical therapy to progress toward set goals. PLAN FOR NEXT VISIT: re-test L PC to determine if BPPV has returned SUBJECTIVE: Pt. reports nausea and dizziness that lasted all day following last visit. Pt. has not had any big spins. Pt. reports that the anxiety is somewhat better. Vestibular Description: vertigo, spinning (self) Rating of current symptoms: 0/10 Frequency: Intermittent Symptoms worsened by: lying down, bending, turning head quickly, rolling right, rolling left Pain: Post Treatment Pain Post Treatment Symptoms: 1/10 vertigo rocking, seated at rest OBJECTIVE MEASURES WITH LEVEL OF FUNCTION: Positional Testing Left [place]-Hallpike: Symptomatic, Less than 60 seconds, With delay, Upbeat, Left Torsional / Counterclockwise TREATMENT: Therapeutic Exercise: Skilled Intervention: Patient was educated in proper exercise technique and purpose for exercises. Skilled judgment was used in selection of appropriate interventions. Educated patient on rationale for performing exercises in regards to including balance, increase ease of ADL, and ROM and function . Patient education as noted. Neuromuscular Re-Education: 1: R and L ear down 2x each 2: R and L rupal hallpike 2x each Skilled Intervention: Skilled judgment used to assess appropriate program for balance and coordination activity. Education in proprioceptive/kinesthetic awareness during positional testing. Gait Training: Distance (feet): 160 Gait Cues: posture, relax the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
== END | disposition home or self-care (01) ==
PROVIDERS: PCP Student in an Organized Health Care Education/Training Program; Referring Provider Psychiatry & Neurology Sleep Medicine; Visit Provider Psychiatry & Neurology Sleep Medicine
DX: R25.9 Unspecified abnormal involuntary movements (principal)
CPT/HCPCS: 95819